=== PATIENT | male | born 1940 | race Caucasian/White ===

== ENCOUNTER → 2016-11-15 | Outpatient (CLI) | payer BC ==
[~2016-11-15] MED LIST: ATOR10TA88 PO; CLOP1TAB15 PO; MULT-506 PO; OMEG10007 PO; VTMEUNK PO
--- NOTE | 2016-11-15 11:38 | DIAGNOSTIC IMAGING REPORT ---
RIGHT ELBOW MIN 3 VIEWS CLINICAL HISTORY: Right elbow pain status post trauma COMPARISON: None. DISCUSSION: The fat pads are not displaced. No acute fractures are visualized. There is a tiny olecranon spur. There is soft tissue swelling at the level of the olecranon. IMPRESSION: 1. Soft tissue swelling at the level of the olecranon 2. No acute fractures identified Electronically signed by: Rubén Lancaster M.D. 11/15/2016 11:36 AM
== END | disposition home or self-care (01) ==
LOC: C.RDSM 17:07
PROVIDERS: ATTEND Internal Medicine
DX: M25.521 Pain in right elbow (principal)

== ENCOUNTER → 2017-07-03 | Outpatient (CLI) | payer BC ==
[~2017-07-03] MED LIST changes: +GADAVIST IV PRN
[2017-07-03 12:00] LABS: ISTAT IONIZED CALCIUM 1.21 mmol/l (1.12-1.32)
--- NOTE | 2017-07-03 13:03 | DIAGNOSTIC IMAGING REPORT ---
BRAIN COMBO FOR IAC CLINICAL HISTORY: 77 years-old Male presenting with left greater than right asymmetric sensorineural hearing loss. TECHNIQUE: Multisequence, multiplanar MR imaging of the brain was performed before and after the administration of intravenous contrast. IV contrast: 8.3 mL of Gadavist. COMPARISON: CT head from 2010. FINDINGS: Ventricles and sulci normal in size. Brain parenchyma normal in appearance with preserved flores-white differentiation. No mass effect or midline shift. No hemorrhage or acute territorial infarct. No extra-axial fluid collection. T2 skull base flow voids preserved. No masslike thickening of the transiting nerves in the internal auditory canal. Normal signal intensity of the inner ears structures. No abnormal parenchymal enhancement. Bone marrow signal intensity within the calvarium within normal limits. IMPRESSION: No acute intracranial abnormality. No abnormality of the internal auditory canals or inner ear structures. Electronically signed by: Bharath Rojas M.D. 07/03/2017 1:02 PM Dictated Date/Time: 07/03/2017 12:55 PM
--- NOTE | 2017-07-11 12:12 | CODING QUERY MEDICAL NECESSITY ---
CQSUPPORTING DIAGNOSIS NEEDED A supporting diagnosis is required for the test/procedure performed on this patient in order for us to be reimbursed by the patient's insurance. Please provide a supporting diagnosis for the following test/procedure listed below next to the test name along with your signature. *If there is no additional diagnosis for this patient that would support the following test/procedure please document that below next to the test/procedure. Test(s)/Procedure(s) that require a supporting diagnosis: DOS 07/03/17 COMPLETE BLOOD COUNT ORDERED BY MIMI CAO Provider Signature: Date: Thank you Serenity Dietrich Health Information Management Once completed, please kindly fax back to [phone] For questions please call [phone]
== END | disposition home or self-care (01) ==
LOC: C.MRI 11:04
PROVIDERS: ATTEND Physician Assistant
DX: H90.42 Sensorineural hearing loss, unilateral, left ear, with unrestricted hearing on the contralateral side (principal); H90.8 Mixed conductive and sensorineural hearing loss, unspecified; H90.A22 Sensorineural hearing loss, unilateral, left ear, with restricted hearing on the contralateral side

== ENCOUNTER 2025-08-26 20:18 | Inpatient (IN) ==
[2025-08-26 20:47] LABS: Hematocrit (blood only) 35.9 % (42.0-52.0); Hemoglobin 12.3 g/dl (14.0-18.0); Immature Granulocytes # (auto) 0.08 K/uL (0.01-0.20); Immature Granulocytes % (auto) 0.5 %; Mean Corpuscular Hemoglobin 28.7 pg (25.0-34.0); Mean Corpuscular Volume 83.9 fL (80.0-100.0); Platelet Count 227 K/uL (130-400); RDW Standard Deviation 42.3 fL (36.4-46.3); Red Blood Count 4.28 M/uL (4.70-6.10); White Blood Count 16.59 K/ul (4.8-10.8)
--- NOTE | 2025-08-26 20:47 | Emergency Department Note ---
Impression & Plan Acute UTI, Weakness ED Provider Note Provider: Jose Miguel Jimenez MD CHIEF COMPLAINT: Weakness, hypoxia HISTORY OF PRESENT ILLNESS: Patient is a 85-year-old gentleman history of dementia and hypertension presenting from [facility] via ambulance today. Staff there found him millimeter sponsor and cyanotic by EMS report. Was placed on oxygen for them and brought here for further evaluation. They evidently had the patient recovery position but no reported falls or trauma. Patient denies pain upon arrival here. Is not the best historian however. EMS report that the patient is not normally on oxygen. They state that they were told that this is his normal mental status. PAST MEDICAL HISTORY: As noted above MEDICATIONS: Reviewed medication list from facility SOCIAL HISTORY: PHYSICAL EXAM: GENERAL: alert and oriented to person but not birthday or recent events in no acute distress on stretcher, smells of urine Head: normocephalic and atraumatic EYES: No injection, discharge or icterus. PERRL, EOMI. NECK: Trachea midline. ENT: Mucous membranes pink and moist. LUNGS: Airway patent. No retractions. Breath sounds clear with good air entry bilaterally. HEART: Regular tachycardic rate and rhythm. No chest wall tenderness ABDOMEN: Soft and non-tender, without guarding or rebound. SKIN: Acyanotic, warm, dry, without rashes EXTREMITIES: Without swelling, tenderness or deformity NEUROLOGICAL: No focal deficits moving all extremities. No aphasia. No facial droop or slurred speech. EK bpm sinus tachycardia. No PVC or PAC. No acute ST segment lobation depression with a QTc of 479. CONTINUOUS CARDIAC MONITORING: was ordered and showed a heart rate of 80s-110s bpm in normal sinus rhythm to sinus tachycardia Patient's laboratory studies and imaging reviewed. Differential includes Infection, dehydration, metabolic abnormality, hypo/hyperglycemia, electrolyte disturbance, anemia, hypoxia, PE, URI, pneumonia,, cardiac sources, intracerebral event, toxicologic, neurologic, as well as other pathologies. IMPRESSION/MEDICAL DECISION MAKING: Patient with some dementia and reportedly at baseline by EMS. No trauma reported. Is mildly hypoxic but only on nasal cannula here. Borderline tachycardia. Smells of urine and question of this could be a infectious picture such as sepsis or urosepsis. Given the tachycardia and hypoxia we will complete CT scan of the chest to exclude PE or pneumonia as well. Given his unresponsiveness earlier we will complete a scan of the head. Will complete the abdomen pelvis as well given his poor history status to ensure no occult stone or other infectious nidus is noted in the abdomen. He is not particularly tender in the abdomen. Respiratory viral panel sent for completeness. Blood work here very slight anemia 12.3 but normal platelet count. Leukocytosis of 16.59 noted. Blood cultures are sent. Lactate not elevated at 1.6. Urinalysis appears positive for infection. Covered with cefepime given penicillin allergy. Negative respiratory viral panel. Procalcitonin 0.1. CT scan of the head per radiology report without evidence of bleed or infarct. CT angio of the chest per radiology without PE but question of maybe some slight fluid overload. Held off on IV fluids secondary to this and his lack of elevated lactate or hypotension. CT abdomen pelvis per radiology questions L3 acute compression fracture with some fecal impaction but no report of stone. Was able to wean the patient to room air. Question if he desatting just due to his illness and UTI infection causing drowsiness and lethargy. Will bring in for further care and monitoring here. IV cefepime administered and hospitalist was contacted for admission. DIAGNOSIS: Acute UTI, weakness DISPOSITION: Hospitalist will evaluate Past Med/Surg History Problem List (Updated 08/26/25 @ 22:18 by Jose Miguel Jimenez M.D.) Weakness (Acute) Acute UTI (Acute) Contusion (Acute) Abrasions of multiple sites (Acute) Fall (Acute) Seizure-like activity COVID-19 (Acute) Generalized headaches Stenosis of left vertebral artery Hypertensive urgency Medical History No pertinent family history Diabetes HTN (hypertension) HLD (hyperlipidemia) Migraine Surgical History No pertinent past surgical history Social History Smoking Status: Never smoker Tobacco Type: Cigarettes Preferred Language: Amharic Data [employer] Architect Required: No Beliefs That Will Affect Care: None Current Living Situation: Alone Feels Safe at Home: Yes Allergies Allergies Allergy/AdvReac Type Severity Reaction Status Date / Time Penicillins Allergy Intermediate rash Verified 08/26/25 20:57 HARVEY Inhibitors Allergy Unknown ON Verified 08/26/25 20:57 CELEBRATION [facility] MED LIST Home Meds Home Medications Medication Instructions Recorded Confirmed clopidogrel 75 mg tablet 75 mg PO QPM 09/13/20 08/26/25 polyethylene glycol 3350 17 gram 17 g PO QAM PRN Constipation 09/13/20 08/26/25 oral powder packet (Miralax) acetaminophen 500 mg tablet 500 mg PO Q6H PRN Pain/ Fever 01/07/25 08/26/25 loperamide 2 mg capsule 4 mg PO DAILY PRN Loose Stool 01/07/25 08/26/25 rosuvastatin 40 mg tablet 40 mg PO QPM 01/07/25 08/26/25 cholecalciferol (vitamin D3) 25 50 mcg PO TID 06/25/25 08/26/25 mcg (1,000 unit) tablet (Vitamin D3) medroxyprogesterone 10 mg tablet 10 mg PO BID 06/25/25 08/26/25 rivastigmine 4.6 mg/24 hour 1 patch topical QPM 06/25/25 08/26/25 transdermal patch quetiapine 25 mg tablet 25 mg PO BID 08/26/25 08/26/25 Results & Data (ED) Vital Signs Vital Signs - 24 hr 08/26/25 20:23 08/26/25 20:23 08/26/25 20:24 Temperature Temperature Source Pulse Rate 109 H 109 H Pulse Rate [Apical] Pulse Rate from SpO2 Sensor 110 H Pulse Rhythm Pulse Strength Respiratory Rate 24 Respiratory Effort / Characteristics Respiratory Depth Respiratory Pattern Blood Pressure 111/68 Blood Pressure [Right Arm] Blood Pressure Mean 89 Blood Pressure Mean [Right Arm] Blood Pressure Position Blood Pressure Position [Right Arm] Pulse Oximetry 94 Oxygen Delivery Method Nasal Cannula Oxygen Flow Rate 2 Sepsis Recent Fever Within 48 Hours Sepsis New/Unexplained Change in Mental Status Sepsis Action Taken by Nursing 08/26/25 20:26 08/26/25 20:26 08/26/25 20:26 Temperature 37.0 C Temperature Source Oral Pulse Rate 112 H Pulse Rate [Apical] Pulse Rate from SpO2 Sensor Pulse Rhythm Regular Pulse Strength Normal Respiratory Rate 24 Respiratory Effort / Characteristics Non-Labored Spontaneous Non-Labored Spontaneous Respiratory Depth Normal Normal Respiratory Pattern Regular Regular Blood Pressure 111/68 Blood Pressure [Right Arm] Blood Pressure Mean 82 Blood Pressure Mean [Right Arm] Blood Pressure Position Lying Blood Pressure Position [Right Arm] Pulse Oximetry 93 Oxygen Delivery Method Nasal Cannula Nasal Cannula Nasal Cannula Oxygen Flow Rate 2 2 2 Sepsis Recent Fever Within 48 Hours No Sepsis New/Unexplained Change in Mental Status No Sepsis Action Taken by Nursing Previously Notified 08/26/25 20:26 08/26/25 20:30 08/26/25 20:45 Temperature Temperature Source Pulse Rate 111 H 104 H Pulse Rate [Apical] Pulse Rate from SpO2 Sensor 109 H 103 H Pulse Rhythm Pulse Strength Respiratory Rate 27 H 25 H Respiratory Effort / Characteristics Respiratory Depth Respiratory Pattern Blood Pressure 117/92 Blood Pressure [Right Arm] Blood Pressure Mean 100 Blood Pressure Mean [Right Arm] Blood Pressure Position Blood Pressure Position [Right Arm] Pulse Oximetry 93 94 94 Oxygen Delivery Method Nasal Cannula Nasal Cannula Nasal Cannula Oxygen Flow Rate 2 2 2 Sepsis Recent Fever Within 48 Hours Sepsis New/Unexplained Change in Mental Status Sepsis Action Taken by Nursing 08/26/25 21:00 08/26/25 21:15 08/26/25 21:54 Temperature Temperature Source Pulse Rate 106 H 100 H Pulse Rate [Apical] 87 Pulse Rate from SpO2 Sensor 100 H Pulse Rhythm Pulse Strength Respiratory Rate 31 H 24 16 Respiratory Effort / Characteristics Respiratory Depth Respiratory Pattern Blood Pressure 90/74 L 122/56 L Blood Pressure [Right Arm] 122/78 Blood Pressure Mean 83 78 Blood Pressure Mean [Right Arm] 92 Blood Pressure Position Blood Pressure Position [Right Arm] Lying Pulse Oximetry 95 94 95 Oxygen Delivery Method Nasal Cannula Nasal Cannula Room Air Oxygen Flow Rate 2 2 Sepsis Recent Fever Within 48 Hours Sepsis New/Unexplained Change in Mental Status Sepsis Action Taken by Nursing Laboratory Data 08/26/25 20:22 08/26/25 20:22 Lab Results 08/26/25 08/26/25 Range/Units 20:22 Unknown WBC 16.59 H (4.8-10.8) K/ul RBC 4.28 L (4.70-6.10) M/uL Hgb 12.3 L (14.0-18.0) g/dl Hct 35.9 L (42.0-52.0) % MCV 83.9 (80.0-100.0) fL MCH 28.7 (25.0-34.0) pg MCHC 34.3 (32.0-36.0) g/dL RDW Std Deviation 42.3 (36.4-46.3) fL RDW Coeff of Nicole 13.9 (11.5-14.5) % Plt Count 227 (130-400) K/uL MPV 9.8 (9.4-12.4) fL Immature Gran % (Auto) 0.5 % Neut % (Auto) 80.9 % Lymph % (Auto) 8.8 % [place] % (Auto) 9.0 % Eos % (Auto) 0.4 % Baso % (Auto) 0.4 % Neut # (Auto) 13.41 H (1.40-6.50) K/uL Lymph # (Auto) 1.46 (1.20-3.40) K/uL [place] # (Auto) 1.50 H (0.11-0.59) K/uL Eos # (Auto) 0.07 (0.00-0.50) K/uL Baso # (Auto) 0.07 (0.00-0.20) K/uL Immature Gran # (Auto) 0.08 (0.01-0.20) K/uL PT 11.9 (9.0-12.0) Seconds INR 1.1 (0.9-1.1) VBG pH 7.37 (7.36-7.41) VBG pCO2 33 L (38-50) mmHg VBG pO2 62 mmHg VBG HCO3 19 mmol/L VBG O2 Saturation 93.9 % VBG Base Excess -5.3 mEq/L Sodium 135 L (136-145) mmol/L Potassium 3.5 (3.5-5.1) mmol/L Chloride 106 (98-107) mmol/L Carbon Dioxide 22 (21-32) mmol/L Anion Gap 7 (3-11) BUN 22 (6-23) mg/dl Creatinine 1.07 (0.6-1.4) mg/dl Est Cr Clr Drug Dosing 54.0 ml/min eGFR 68.85 BUN/Creatinine Ratio 20.6 H (10-20) Glucose 201 H (70-99(Fasting)) mg/dl Lactate 1.6 (0.4-2.0) mmol/L Calcium 8.8 (8.6-10.3) mg/dl Magnesium 1.9 (1.7-2.4) mg/dl Total Bilirubin 0.9 (0.2-1.0) mg/dl AST 14 (13-39) U/L ALT 27 (7-52) U/L Alkaline Phosphatase 90 (34-104) U/L Total Creatine Kinase 197 (30-223) U/L Troponin I High Sens 8.8 (0-20) pg/ml Total Protein 6.1 (6.0-8.3) gm/dl Albumin 3.6 (3.4-5.0) gm/dl Globulin 2.5 (2.5-4.0) gm/dl Albumin/Globulin Ratio 1.4 (0.9-2) Procalcitonin 0.10 (0-0.5) ng/ml TSH 2.821 (0.300-4.500) uIu/ml Urine Color Yellow Urine Appearance Cloudy A (Clear) Urine pH 5.5 (4.5-7.5) Ur Specific [place] 1.025 (1.000-1.030) Urine Protein 1+ H (Negative) Urine Glucose (UA) Negative (Negative) Urine Ketones Trace H (Negative) Urine Blood Negative (Negative) Urine Nitrite Positive A (Negative) Urine Bilirubin Negative (Negative) Urine Urobilinogen Negative (Negative) Ur Leukocyte Esterase 1+ H (Negative) Urine WBC (Auto) >50 H (0-5) /hpf Urine RBC (Auto) 0-2 (0-2) /hpf U Hyaline Cast (Auto) 3-5 H (0-2) /lpf U Epithel Cells (Auto) 0-2 (0-2) /hpf Urine Bacteria (Auto) 4+ H (None Seen) Urine Comment Adenovirus (PCR) Not Detected (NotDetected) B. pertussis DNA (PCR) Not Detected (NotDetected) B.parapertussis DNA PCR Not Detected (NotDetected) C. pneumoniae DNA (PCR) Not Detected (NotDetected) Coronavirus OC43 (PCR) Not Detected (NotDetected) Coronavirus HKU1 (PCR) Not Detected (NotDetected) Coronavirus 229E (PCR) Not Detected (NotDetected) SARS-CoV-2 (PCR) Not Detected (NotDetected) Coronavirus NL63 (PCR) Not Detected (NotDetected) Human Metapneumovir PCR Not Detected (NotDetected) Influenza Type A (PCR) Not Detected (NotDetected) Influenza Type B (PCR) Not Detected (NotDetected) M. pneumoniae (PCR) Not Detected (NotDetected) Parainfluenza 1 (PCR) Not Detected (NotDetected) Parainfluenza 2 (PCR) Not Detected (NotDetected) Parainfluenza 3 (PCR) Not Detected (NotDetected) Parainfluenza 4 (PCR) Not Detected (NotDetected) RSV (PCR) Not Detected (NotDetected) Entero/Rhino (PCR) Not Detected (NotDetected) Administered Medications Discontinued Medications Cefepime HCl (Maxipime 2000mg) 2,000 mg in 20 mls @ 5 mls/min IV NOW STA; Protocol Stop: 08/26/25 21:33 Last Admin: 08/26/25 21:42 Dose: 5 mls/min Documented By: JENNA Ioversol (Optiray 320 125ml) 115 ml IV ONCE ONE Stop: 08/26/25 21:08 Last Admin: 08/26/25 21:07 Dose: 115 ml Documented By: EDWINA Imaging Data Radiologist's Impression: Chest X-Ray 08/26/25 20:26 Exam(s): XR CXR 1 VIEW EXAM: XR Chest, 1 View CLINICAL HISTORY: Reason for exam: weakness, hypoxia. TECHNIQUE: Frontal view of the chest. COMPARISON: CTA chest done as a follow-up. FINDINGS: Lungs/Pleural space: Mild vascular/interstitial prominence, nonspecific, may be chronic; can not rule out mild CHF. No focal infiltrate, pleural effusion or pneumothorax. Heart: No cardiomegaly. Mediastinum: Unremarkable. Bones/Soft Tissues: No acute abnormality. IMPRESSION: 1. Mild vascular/interstitial prominence, nonspecific, may be chronic; cannot rule out mild CHF. Electronically signed by: Lily Pinto M.D. 08/26/25 21:57 PM Abdomen/Pelvis CT 08/26/25 20:27 Exam(s): CT ABDOMEN + PELVIS With Contrast IV Amt: 115 ml optiray 320 EXAM: CT Abdomen and Pelvis With Intravenous Contrast CLINICAL HISTORY: Reason for exam: weak, hypoxic. TECHNIQUE: Axial computed tomography images of the abdomen and pelvis with intravenous contrast. CTDI is 26.72 mGy and DLP is 1530.86 mGy-cm. Automated exposure control was utilized for the study. A dose lowering technique was utilized adhering to the principles of ALARA. Mild to moderate motion artifact. Mild to moderate artifact from arms in the field of view, patient and breathing motion. CONTRAST: Patient received 115 ml optiray 320 of IV contrast COMPARISON: CT abdomen pelvis 08/12/2025. FINDINGS: Lung bases: Mild bibasilar dependent pleural-parenchymal thickening, scarring, atelectasis and/or pneumonia. Breathing motion artifact limits evaluation. Liver: Stable, small cysts. Gallbladder and bile ducts: Normal gallbladder. No ductal dilation. Pancreas: No ductal dilation, or acute pancreatitis. Spleen: Unremarkable. Adrenals: Unremarkable. Kidneys and ureters: Stable cysts. No pyelonephritis or hydronephrosis. Stomach and bowel: Moderate fecal loading of the colon, and mild fecal impaction in the rectum. Diverticulosis without acute diverticulitis. No obstruction. Appendix: Normal. Intraperitoneal space: No free air or fluid. Bones/joints: Mild superior endplate compression fracture L3, has occurred in the interval , likely reflecting acute fracture. No retropulsion. Multilevel chronic endplate flattening, most notable at T12, stable. Soft tissues: Unremarkable. Vasculature: Moderate atherosclerosis. No aortic aneurysm. Lymph nodes: No enlarged lymph nodes. Bladder: Only mildly distended with wall thickening that may be artifact, can not rule out cystitis. Reproductive: Unremarkable as visualized. IMPRESSION: 1. New, acute L3 compression fracture. 2. Possible cystitis versus artifact from underdistention. 3. Mild fecal impaction in the rectum. Electronically signed by: Lily Pinto M.D. 08/26/25 22:11 PM Chest CTA 08/26/25 20:27 Exam(s): CTA CHEST IV Amt: 115ml EXAM: CT Chest With Intravenous Contrast CLINICAL HISTORY: Reason for exam: PE, weak, hypoxic. TECHNIQUE: Axial computed tomographic images of the chest with intravenous contrast. CTDI is 26.41 mGy and DLP is 819.84 mGy-cm. Automated exposure control was utilized for the study. A dose lowering technique was utilized adhering to the principles of ALARA. No MIP images. 115 mL IV contrast is given, with excellent aortic and pulmonary arterial enhancement. Moderate breathing/motion artifact. COMPARISON: CT chest 08/12/2025. FINDINGS: Pulmonary arteries: No pulmonary embolism, as imaged, with limited evaluation due to motion artifact. Mild vascular prominence. Aorta: No aneurysm. Lungs: Mild dependent atelectasis or infiltrate. No consolidation. Pleural space: Right pleural thickening and calcification No significant effusion. No pneumothorax. Heart: Stable, mild cardiomegaly. No significant pericardial effusion. No evidence of elevated right heart pressures. Bones/joints: No acute fracture. Soft tissues: Partially imaged bilateral renal cysts, stable, no further workup. Lymph nodes: No enlarged lymph nodes. IMPRESSION: 1. No pulmonary embolism, as imaged, with limited evaluation due to motion artifact. 2. Mild vascular and bibasilar interstitial prominence, nonspecific, can not rule out mild CHF and/or pneumonia. Electronically signed by: Lily Pinto M.D. 08/26/25 22:[address] 08/26/25 20:27 Exam(s): CT HEAD Without Contrast EXAM: CT Head Without Intravenous Contrast CLINICAL HISTORY: Reason for exam: weak, hypoxic. TECHNIQUE: Axial computed tomography images of the head/brain without intravenous contrast. CTDI is 37.01 mGy and DLP is 702.46 mGy-cm. Automated exposure control was utilized for the study. A dose lowering technique was utilized adhering to the principles of ALARA. Mild to moderate motion artifact. COMPARISON: Head CT 08/12/2025. FINDINGS: Brain: Ventriculomegaly with relatively small sulci, nonspecific, stable, may reflect atrophy of the central component, cannot rule out communicating hydrocephalus. No mass, edema, mass effect or acute infarct. No acute hemorrhage. Mild atrophy and chronic, nonspecific white matter disease. Ventricles: No midline shift. Bones/joints: No skull fracture. Soft tissues: No scalp hematoma. Visualized Sinuses: Clear. Mastoid air cells: No mastoid effusion. IMPRESSION: 1. Stable ventriculomegaly, cannot rule out communicating hydrocephalus. 2. No acute infarct, bleed, acute intracranial abnormality, or interval change. Electronically signed by: Lily Pinto M.D. 08/26/25 22:25 PM Discharge Plan Visit Data Chief Complaint: Shortness of Breath/Dyspnea Stated Complaint: SHORTNESS OF BREATH ED Provider: Jose Miguel Jimenez Discharge Problem: Acute UTI, Weakness Patient Disposition: Being Evaluated by Hospitalist Condition: Fair Forms Stand Alone Forms: [facility] [place] Prescriptions Prescriptions: No Action polyethylene glycol 3350 [Miralax] 17 gram Powder In Packet 17 g PO QAM PRN (Reason: Constipation) clopidogrel 75 mg tablet 75 mg PO QPM loperamide 2 mg capsule 4 mg PO DAILY MDD 4 caps PRN (Reason: Loose Stool ) Rx Instructions: Take 2 capsules by mouth after 1st loose bowel movement, then one capsule thereafter as needed. *Max 4caps/ 24hours. acetaminophen 500 mg Tablet 500 mg PO Q6H MDD 3GM PRN (Reason: Pain/ Fever ) rosuvastatin 40 mg tablet 40 mg PO QPM medroxyprogesterone 10 mg tablet 10 mg PO BID cholecalciferol (vitamin D3) [Vitamin D3] 25 mcg (1,000 unit) Tablet 50 mcg PO TID rivastigmine 4.6 mg/24 hour patch 24 hour 1 patch topical QPM quetiapine 25 mg tablet 25 mg PO BID Referrals Referrals: ZELALEM Martinez [Primary Care Provider] -
[2025-08-26 20:56] LABS: Base Excess VBG -5.3 mEq/L; HCO3 VBG 19 mmol/L; Oxygen Saturation VBG 93.9 %; PCO2 VBG 33 mmHg (38-50); PO2 VBG 62 mmHg; pH VBG 7.37 (7.36-7.41)
[2025-08-26 21:04] LABS: Alanine Aminotransferase 27.0 U/L (7-52); Albumin Globulin Ratio 1.4 (0.9-2); Albumin Level 3.6 gm/dl (3.4-5.0); Alkaline Phosphatase 90.0 U/L (34-104); Anion Gap 7.0 (3-11); Bilirubin,Total 0.9 mg/dl (0.2-1.0); Blood Urea Nitrogen 22.0 mg/dl (6-23); Calcium 8.8 mg/dl (8.6-10.3); Carbon Dioxide 22.0 mmol/L (21-32); Chloride 106.0 mmol/L (98-107); Creatine Kinase 197.0 U/L (30-223); Creatinine Clr Calc Pharmacy 54.0 ml/min; Globulin 2.5 gm/dl (2.5-4.0); Glucose 201.0 mg/dl (70-99(Fasting)); Magnesium 1.9 mg/dl (1.7-2.4); Potassium 3.5 mmol/L (3.5-5.1); Sodium 135.0 mmol/L (136-145); Total Protein 6.1 gm/dl (6.0-8.3)
[2025-08-26] MEDS: OPTIRAY 320 125ml IV ONE (21:07)
[2025-08-26 21:11] LABS: Appearance Urine Cloudy (Clear); Bacteria Urine Automated 4+ (None Seen); Epithelial Cell Urine Auto 0-2 /hpf (0-2); Glucose Urine UA Negative (Negative); RBC Urine Automated 0-2 /hpf (0-2); WBC Urine Automated >50 /hpf (0-5)
[2025-08-26 21:12] LABS: INR 1.1 (0.9-1.1); Prothrombin Time 11.9 Seconds (9.0-12.0)
[2025-08-26 21:20] LABS: Thyroid Stimulating Hormone 2.821 uIu/ml (0.300-4.500)
[2025-08-26 21:37] LABS: Chlamydia pneumoniae PCR Not Detected (NotDetected); Coronavirus 229E PCR Not Detected (NotDetected); Coronavirus CoV-2 (COVID19)PCR Not Detected (NotDetected); Coronavirus HKU1 PCR Not Detected (NotDetected); Coronavirus NL63 PCR Not Detected (NotDetected); Coronavirus OC43PCR Not Detected (NotDetected); Human Metapneumovirus PCR Not Detected (NotDetected); Parainfluenza Virus 1 PCR Not Detected (NotDetected); Parainfluenza Virus 2 PCR Not Detected (NotDetected); Parainfluenza Virus 3 PCR Not Detected (NotDetected); Parainfluenza Virus 4 PCR Not Detected (NotDetected); Respiratory Syncytial VirusPCR Not Detected (NotDetected); Rhinovirus/Enterovirus PCR Not Detected (NotDetected)
[2025-08-26] MEDS: CEFEPIME 2000MG 2,000 MG/20 ML SYR IV STA (21:42)
--- NOTE | 2025-08-26 21:58 | XRay Report ---
Exam(s): XR CXR 1 VIEW EXAM: XR Chest, 1 View CLINICAL HISTORY: Reason for exam: weakness, hypoxia. TECHNIQUE: Frontal view of the chest. COMPARISON: CTA chest done as a follow-up. FINDINGS: Lungs/Pleural space: Mild vascular/interstitial prominence, nonspecific, may be chronic; can not rule out mild CHF. No focal infiltrate, pleural effusion or pneumothorax. Heart: No cardiomegaly. Mediastinum: Unremarkable. Bones/Soft Tissues: No acute abnormality. IMPRESSION: 1. Mild vascular/interstitial prominence, nonspecific, may be chronic; cannot rule out mild CHF. Electronically signed by: Lily Pinto M.D. 08/26/25 21:57 PM
--- NOTE | 2025-08-26 22:12 | CT Scan Report ---
Exam(s): CT ABDOMEN + PELVIS With Contrast IV Amt: 115 ml optiray 320 EXAM: CT Abdomen and Pelvis With Intravenous Contrast CLINICAL HISTORY: Reason for exam: weak, hypoxic. TECHNIQUE: Axial computed tomography images of the abdomen and pelvis with intravenous contrast. CTDI is 26.72 mGy and DLP is 1530.86 mGy-cm. Automated exposure control was utilized for the study. A dose lowering technique was utilized adhering to the principles of ALARA. Mild to moderate motion artifact. Mild to moderate artifact from arms in the field of view, patient and breathing motion. CONTRAST: Patient received 115 ml optiray 320 of IV contrast COMPARISON: CT abdomen pelvis 08/12/2025. FINDINGS: Lung bases: Mild bibasilar dependent pleural-parenchymal thickening, scarring, atelectasis and/or pneumonia. Breathing motion artifact limits evaluation. Liver: Stable, small cysts. Gallbladder and bile ducts: Normal gallbladder. No ductal dilation. Pancreas: No ductal dilation, or acute pancreatitis. Spleen: Unremarkable. Adrenals: Unremarkable. Kidneys and ureters: Stable cysts. No pyelonephritis or hydronephrosis. Stomach and bowel: Moderate fecal loading of the colon, and mild fecal impaction in the rectum. Diverticulosis without acute diverticulitis. No obstruction. Appendix: Normal. Intraperitoneal space: No free air or fluid. Bones/joints: Mild superior endplate compression fracture L3, has occurred in the interval , likely reflecting acute fracture. No retropulsion. Multilevel chronic endplate flattening, most notable at T12, stable. Soft tissues: Unremarkable. Vasculature: Moderate atherosclerosis. No aortic aneurysm. Lymph nodes: No enlarged lymph nodes. Bladder: Only mildly distended with wall thickening that may be artifact, can not rule out cystitis. Reproductive: Unremarkable as visualized. IMPRESSION: 1. New, acute L3 compression fracture. 2. Possible cystitis versus artifact from underdistention. 3. Mild fecal impaction in the rectum. Electronically signed by: Lily Pinto M.D. 08/26/25 22:11 PM
--- NOTE | 2025-08-26 22:26 | CT Scan Report ---
Exam(s): CT HEAD Without Contrast EXAM: CT Head Without Intravenous Contrast CLINICAL HISTORY: Reason for exam: weak, hypoxic. TECHNIQUE: Axial computed tomography images of the head/brain without intravenous contrast. CTDI is 37.01 mGy and DLP is 702.46 mGy-cm. Automated exposure control was utilized for the study. A dose lowering technique was utilized adhering to the principles of ALARA. Mild to moderate motion artifact. COMPARISON: Head CT 08/12/2025. FINDINGS: Brain: Ventriculomegaly with relatively small sulci, nonspecific, stable, may reflect atrophy of the central component, cannot rule out communicating hydrocephalus. No mass, edema, mass effect or acute infarct. No acute hemorrhage. Mild atrophy and chronic, nonspecific white matter disease. Ventricles: No midline shift. Bones/joints: No skull fracture. Soft tissues: No scalp hematoma. Visualized Sinuses: Clear. Mastoid air cells: No mastoid effusion. IMPRESSION: 1. Stable ventriculomegaly, cannot rule out communicating hydrocephalus. 2. No acute infarct, bleed, acute intracranial abnormality, or interval change. Electronically signed by: Lily Pinto M.D. 08/26/25 22:25 PM
--- NOTE | 2025-08-26 22:41 | CT Scan Report ---
Exam(s): CTA CHEST IV Amt: 115ml EXAM: CT Chest With Intravenous Contrast CLINICAL HISTORY: Reason for exam: PE, weak, hypoxic. TECHNIQUE: Axial computed tomographic images of the chest with intravenous contrast. CTDI is 26.41 mGy and DLP is 819.84 mGy-cm. Automated exposure control was utilized for the study. A dose lowering technique was utilized adhering to the principles of ALARA. No MIP images. 115 mL IV contrast is given, with excellent aortic and pulmonary arterial enhancement. Moderate breathing/motion artifact. COMPARISON: CT chest 08/12/2025. FINDINGS: Pulmonary arteries: No pulmonary embolism, as imaged, with limited evaluation due to motion artifact. Mild vascular prominence. Aorta: No aneurysm. Lungs: Mild dependent atelectasis or infiltrate. No consolidation. Pleural space: Right pleural thickening and calcification No significant effusion. No pneumothorax. Heart: Stable, mild cardiomegaly. No significant pericardial effusion. No evidence of elevated right heart pressures. Bones/joints: No acute fracture. Soft tissues: Partially imaged bilateral renal cysts, stable, no further workup. Lymph nodes: No enlarged lymph nodes. IMPRESSION: 1. No pulmonary embolism, as imaged, with limited evaluation due to motion artifact. 2. Mild vascular and bibasilar interstitial prominence, nonspecific, can not rule out mild CHF and/or pneumonia. Electronically signed by: Lily Pinto M.D. 08/26/25 22:40 PM
--- NOTE | 2025-08-26 22:49 | History & Physical Report ---
Date of Service August 26, 2025 Assessment & Plan (1) Acute UTI: (2) Compression fracture of L3 vertebra: (3) Constipation: Plan 85-year-old male PMHx HLD, DM, complicated migraines, depression, dementia, history of tobacco abuse, hearing loss, GERD, and prior left vertebral artery stenosis presenting for complaints of SOB per nursing staff at [facility] with O2 sats 80s on the day of arrival. Evaluation does reveal evidence of leukocytosis 16.59 with minimally decreased H&H 12.3/35.9. VBG is grossly WNL with exception of slightly decreased CO2 at 33. CMP with glucose 201 and sodium of 135. Lactate, troponin, total CK, procalcitonin WNL. UA does reveal evidence of infection, supported by CTAP read. Also found to have acute L3 compression fracture. While pt was brought in for "SOB and hypoxia" there has not been evidence of such since arrival to ED. Will continue to monitor this as appropriate. Admission for UTI and pain management as needed for compression fracture. #UTI Unable to express symptoms or concerns. Reportedly at baseline mentation. Documented history of diabetes, no current medical regimen for such. No prior h/o Pseudomonas. - CBC leukocytosis 16.53; renal function WNL; lactate 1.6; procalcitonin 0.1 - CBC am - UA suggestive of infection; pending cx - CTAP possible cystitis - Zofran prn N/V - Acetaminophen prn fever/pain - Cefepime 2g IV - continue #L3 compression fracture Unclear if fall or trauma. - Total CK WNL - Vit D level am - Heat prn - Fall precautions - Acetaminophen prn pain, can escalate as appropriate - PT/OT ordered - appreciate assistance #Constipation Unable to express concerns/pain, unable to obtain date of last BM; is prescribed loperamide as needed for loose stool. Also prescribed MiraLAX as needed. - CTAP today of arrival reveals fecal impaction in the rectum - Hold loperamide - Continue MiraLAX, add bisacodyl, and add enema as necessary #LVA stenosis- Rosuvastatin, Plavix - continue #Dementia/Psych- Quetiapine, rivastigmine, medroxyprogesterone - continue Dispo: Admit, med/tele VTE Prophylaxis: SCDs This document was dictated utilizing Dragon Medical One. Please excuse any grammatical errors that may be secondary to use of this software. Admission and Anticipated Discharge Date Admission Date: 08/26/2025 History of Present Illness Chief Complaint: SOB Primary Care Provider: [facility] 85-year-old male PMHx HLD, DM, complicated migraines, depression, dementia, history of tobacco abuse, hearing loss, GERD, and prior left vertebral artery stenosis presenting for complaints of SOB per nursing staff at [facility] with O2 sats 80s on the day of arrival. Pt is unable to provide a historian, anjana olson historian. Sleeping upon entering the room. He is oriented to his name and opens his eyes when his name is called/when touched on the arm. Shakes his head no when asked if he has pain or if he fell recently. Goes back to sleep then. Report states that the patient was cyanotic at [facility] and had O2 sats of 80% when checked. Since being in ED, he has not been hypoxic at all. ED evaluation CBC with leukocytosis 16.59, H&H 12.3/35.9; PT/INR WNL; VBG's pCO2 33; CMP sodium 135, glucose 201, BUN/creatinine ratio 20.6; lactate 1.6; troponin 8.8; total CK1 97; procalcitonin 0.1; TSH 2.821; UA positive for infection; BioFire negative; CXR mild vascular/interstitial prominence that is nonspecific and may be chronic; CTAP no acute L3 compression fracture, possible cystitis, fecal impaction in the rectum; head CT stable ventriculomegaly cannot rule out communicating hydrocephalus, no acute infarct/bleed/intracranial abnormality; chest CTA no PE, mild vascular and bibasilar interstitial prominence; EKG sinus tachycardia at 110 bpm.; Provided with cefepime 2 g IV in ED. Please see Dr. Frye's attestation for adjustments/additions to treatment plan. Allergies Allergy/AdvReac Type Severity Reaction Status Date / Time Penicillins Allergy Intermediate rash Verified 08/26/25 20:57 HARVEY Inhibitors Allergy Unknown ON Verified 08/26/25 20:57 [facility] MED LIST Home Medications Medication Instructions Recorded Confirmed Type clopidogrel 75 mg tablet 75 mg PO QPM 09/13/20 08/26/25 History polyethylene glycol 3350 17 gram 17 g PO QAM PRN Constipation 09/13/20 08/26/25 History oral powder packet (Miralax) acetaminophen 500 mg tablet 500 mg PO Q6H PRN Pain/ Fever 01/07/25 08/26/25 History loperamide 2 mg capsule 4 mg PO DAILY PRN Loose Stool 01/07/25 08/26/25 History rosuvastatin 40 mg tablet 40 mg PO QPM 01/07/25 08/26/25 History cholecalciferol (vitamin D3) 25 50 mcg PO TID 06/25/25 08/26/25 History mcg (1,000 unit) tablet (Vitamin D3) medroxyprogesterone 10 mg tablet 10 mg PO BID 06/25/25 08/26/25 History rivastigmine 4.6 mg/24 hour 1 patch topical QPM 06/25/25 08/26/25 History transdermal patch quetiapine 25 mg tablet 25 mg PO BID 08/26/25 08/26/25 History Past Med/Surg History Problem List (Updated 08/27/25 @ 02:26 by Astrid Roberts) Constipation Compression fracture of L3 vertebra Weakness (Acute) Acute UTI (Acute) Seizure-like activity COVID-19 (Acute) Generalized headaches Stenosis of left vertebral artery Hypertensive urgency Medical History No pertinent family history Diabetes HTN (hypertension) HLD (hyperlipidemia) Migraine Surgical History No pertinent past surgical history Social History Smoking Status: Unknown if ever smoked Tobacco Type: Cigarettes Hx Alcohol Use: No Hx Substance Use: No Preferred Language: Malay Communication Ability: Effective 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 Beliefs That Will Affect Care: None Current Living Situation: Residential Current Living Situation Comment: [facility] Feels Safe at Home: Yes Safety Concerns: Feels Safe At This Time Assistive Devices: Oxygen - Continuous Review of Systems Review of Systems: Unobtainable due to cognitive status Physical Exam Physical Exam: General: No acute distress Skin: Warm and dry Head: Normocephalic, atraumatic Eyes: PERRL, conjunctivae clear, sclera non-icteric ENT: External ear and ear canal without swelling; nose atraumatic; tongue normal appearance, pharynx normal Neck: Supple, no LAD Cardio: RRR, no M/G/R, S1 and S2 normal Resp: No respiratory distress, Lungs CTA in all lobes bilaterally, no wheezes, rales, or rhonchi Abdomen: Soft, symmetric, nontender; No masses or hepatosplenomegaly; Bowel sounds normoactive MSK: No deformities; pulses palpable and equal; no edema. Neuro: Sensation intact bilaterally Psych: Sleeping, oriented to name and light touch. Results & Data Results & Data Vital Signs (Past 12 Hours) Vital Signs Temp Pulse Pulse Resp BP BP Pulse Ox 08/26/25 21:54 87 16 122/78 95 08/26/25 21:15 100 H 24 122/56 L 94 08/26/25 21:00 106 H 31 H 90/74 L 95 08/26/25 20:45 104 H 25 H 94 08/26/25 20:30 111 H 27 H 117/92 94 08/26/25 20:26 93 08/26/25 20:26 08/26/25 20:26 37.0 C 112 H 24 111/68 93 08/26/25 20:26 08/26/25 20:24 109 H 24 94 08/26/25 20:23 111/68 08/26/25 20:23 109 H O2 Del Method O2 Flow Rate 08/26/25 21:54 Room Air 08/26/25 21:15 Nasal Cannula 2 08/26/25 21:00 Nasal Cannula 2 08/26/25 20:45 Nasal Cannula 2 08/26/25 20:30 Nasal Cannula 2 08/26/25 20:26 Nasal Cannula 2 08/26/25 20:26 Nasal Cannula 2 08/26/25 20:26 Nasal Cannula 2 08/26/25 20:26 Nasal Cannula 2 08/26/25 20:24 Nasal Cannula 2 08/26/25 20:23 08/26/25 20:23 Laboratory Results 08/26/25 21:26 Aerobic Blood Culture - Pending Blood Anaerobic Blood Culture - Pending 08/26/25 Unknown Urine Culture - Pending Urine,Clean Catch 08/26/25 20:22 Aerobic Blood Culture - Pending Blood Anaerobic Blood Culture - Pending 08/26/25 08/26/25 Unknown 20:22 WBC 16.59 H RBC 4.28 L Hgb 12.3 L Hct 35.9 L MCV 83.9 MCH 28.7 MCHC 34.3 RDW Std Deviation 42.3 RDW Coeff of Nicole 13.9 Plt Count 227 MPV 9.8 Immature Gran % (Auto) 0.5 Neut % (Auto) 80.9 Lymph % (Auto) 8.8 [place] % (Auto) 9.0 Eos % (Auto) 0.4 Baso % (Auto) 0.4 Neut # (Auto) 13.41 H Lymph # (Auto) 1.46 [place] # (Auto) 1.50 H Eos # (Auto) 0.07 Baso # (Auto) 0.07 Immature Gran # (Auto) 0.08 PT 11.9 INR 1.1 VBG pH 7.37 VBG pCO2 33 L VBG pO2 62 VBG HCO3 19 VBG O2 Saturation 93.9 VBG Base Excess -5.3 Sodium 135 L Potassium 3.5 Chloride 106 Carbon Dioxide 22 Anion Gap 7 BUN 22 Creatinine 1.07 Est Cr Clr Drug Dosing 54.0 eGFR 68.85 BUN/Creatinine Ratio 20.6 H Glucose 201 H Lactate 1.6 Calcium 8.8 Magnesium 1.9 Total Bilirubin 0.9 AST 14 ALT 27 Alkaline Phosphatase 90 Total Creatine Kinase 197 Troponin I High Sens 8.8 Total Protein 6.1 Albumin 3.6 Globulin 2.5 Albumin/Globulin Ratio 1.4 Procalcitonin 0.10 TSH 2.821 Urine Color Yellow Urine Appearance Cloudy A Urine pH 5.5 Ur Specific [place] 1.025 Urine Protein 1+ H Urine Glucose (UA) Negative Urine Ketones Trace H Urine Blood Negative Urine Nitrite Positive A Urine Bilirubin Negative Urine Urobilinogen Negative Ur Leukocyte Esterase 1+ H Urine WBC (Auto) >50 H Urine RBC (Auto) 0-2 U Hyaline Cast (Auto) 3-5 H U Epithel Cells (Auto) 0-2 Urine Bacteria (Auto) 4+ H Urine Comment Adenovirus (PCR) Not Detected B. pertussis DNA (PCR) Not Detected B.parapertussis DNA PCR Not Detected C. pneumoniae DNA (PCR) Not Detected Coronavirus OC43 (PCR) Not Detected Coronavirus HKU1 (PCR) Not Detected Coronavirus 229E (PCR) Not Detected SARS-CoV-2 (PCR) Not Detected Coronavirus NL63 (PCR) Not Detected Human Metapneumovir PCR Not Detected Influenza Type A (PCR) Not Detected Influenza Type B (PCR) Not Detected M. pneumoniae (PCR) Not Detected Parainfluenza 1 (PCR) Not Detected Parainfluenza 2 (PCR) Not Detected Parainfluenza 3 (PCR) Not Detected Parainfluenza 4 (PCR) Not Detected RSV (PCR) Not Detected Entero/Rhino (PCR) Not Detected Diagnostic Findings Chest X-Ray 08/26/25 20:26 Exam(s): XR CXR 1 VIEW EXAM: XR Chest, 1 View CLINICAL HISTORY: Reason for exam: weakness, hypoxia. TECHNIQUE: Frontal view of the chest. COMPARISON: CTA chest done as a follow-up. FINDINGS: Lungs/Pleural space: Mild vascular/interstitial prominence, nonspecific, may be chronic; can not rule out mild CHF. No focal infiltrate, pleural effusion or pneumothorax. Heart: No cardiomegaly. Mediastinum: Unremarkable. Bones/Soft Tissues: No acute abnormality. IMPRESSION: 1. Mild vascular/interstitial prominence, nonspecific, may be chronic; cannot rule out mild CHF. Electronically signed by: Lily Pinto M.D. 08/26/25 21:57 PM Abdomen/Pelvis CT 08/26/25 20:27 Exam(s): CT ABDOMEN + PELVIS With Contrast IV Amt: 115 ml optiray 320 EXAM: CT Abdomen and Pelvis With Intravenous Contrast CLINICAL HISTORY: Reason for exam: weak, hypoxic. TECHNIQUE: Axial computed tomography images of the abdomen and pelvis with intravenous contrast. CTDI is 26.72 mGy and DLP is 1530.86 mGy-cm. Automated exposure control was utilized for the study. A dose lowering technique was utilized adhering to the principles of ALARA. Mild to moderate motion artifact. Mild to moderate artifact from arms in the field of view, patient and breathing motion. CONTRAST: Patient received 115 ml optiray 320 of IV contrast COMPARISON: CT abdomen pelvis 08/12/2025. FINDINGS: Lung bases: Mild bibasilar dependent pleural-parenchymal thickening, scarring, atelectasis and/or pneumonia. Breathing motion artifact limits evaluation. Liver: Stable, small cysts. Gallbladder and bile ducts: Normal gallbladder. No ductal dilation. Pancreas: No ductal dilation, or acute pancreatitis. Spleen: Unremarkable. Adrenals: Unremarkable. Kidneys and ureters: Stable cysts. No pyelonephritis or hydronephrosis. Stomach and bowel: Moderate fecal loading of the colon, and mild fecal impaction in the rectum. Diverticulosis without acute diverticulitis. No obstruction. Appendix: Normal. Intraperitoneal space: No free air or fluid. Bones/joints: Mild superior endplate compression fracture L3, has occurred in the interval , likely reflecting acute fracture. No retropulsion. Multilevel chronic endplate flattening, most notable at T12, stable. Soft tissues: Unremarkable. Vasculature: Moderate atherosclerosis. No aortic aneurysm. Lymph nodes: No enlarged lymph nodes. Bladder: Only mildly distended with wall thickening that may be artifact, can not rule out cystitis. Reproductive: Unremarkable as visualized. IMPRESSION: 1. New, acute L3 compression fracture. 2. Possible cystitis versus artifact from underdistention. 3. Mild fecal impaction in the rectum. Electronically signed by: Lily Pinto M.D. 08/26/25 22:11 PM Chest CTA 08/26/25 20:27 Exam(s): CTA CHEST IV Amt: 115ml EXAM: CT Chest With Intravenous Contrast CLINICAL HISTORY: Reason for exam: PE, weak, hypoxic. TECHNIQUE: Axial computed tomographic images of the chest with intravenous contrast. CTDI is 26.41 mGy and DLP is 819.84 mGy-cm. Automated exposure control was utilized for the study. A dose lowering technique was utilized adhering to the principles of ALARA. No MIP images. 115 mL IV contrast is given, with excellent aortic and pulmonary arterial enhancement. Moderate breathing/motion artifact. COMPARISON: CT chest 08/12/2025. FINDINGS: Pulmonary arteries: No pulmonary embolism, as imaged, with limited evaluation due to motion artifact. Mild vascular prominence. Aorta: No aneurysm. Lungs: Mild dependent atelectasis or infiltrate. No consolidation. Pleural space: Right pleural thickening and calcification No significant effusion. No pneumothorax. Heart: Stable, mild cardiomegaly. No significant pericardial effusion. No evidence of elevated right heart pressures. Bones/joints: No acute fracture. Soft tissues: Partially imaged bilateral renal cysts, stable, no further workup. Lymph nodes: No enlarged lymph nodes. IMPRESSION: 1. No pulmonary embolism, as imaged, with limited evaluation due to motion artifact. 2. Mild vascular and bibasilar interstitial prominence, nonspecific, can not rule out mild CHF and/or pneumonia. Electronically signed by: Lily Pinto M.D. 08/26/25 22:[address] 08/26/25 20:27 Exam(s): CT HEAD Without Contrast EXAM: CT Head Without Intravenous Contrast CLINICAL HISTORY: Reason for exam: weak, hypoxic. TECHNIQUE: Axial computed tomography images of the head/brain without intravenous contrast. CTDI is 37.01 mGy and DLP is 702.46 mGy-cm. Automated exposure control was utilized for the study. A dose lowering technique was utilized adhering to the principles of ALARA. Mild to moderate motion artifact. COMPARISON: Head CT 08/12/2025. FINDINGS: Brain: Ventriculomegaly with relatively small sulci, nonspecific, stable, may reflect atrophy of the central component, cannot rule out communicating hydrocephalus. No mass, edema, mass effect or acute infarct. No acute hemorrhage. Mild atrophy and chronic, nonspecific white matter disease. Ventricles: No midline shift. Bones/joints: No skull fracture. Soft tissues: No scalp hematoma. Visualized Sinuses: Clear. Mastoid air cells: No mastoid effusion. IMPRESSION: 1. Stable ventriculomegaly, cannot rule out communicating hydrocephalus. 2. No acute infarct, bleed, acute intracranial abnormality, or interval change. Electronically signed by: Lily Pinto M.D. 08/26/25 22:25 PM Medications Administered Cefepime 2 g IV ECG Additional Comments: Sinus tachycardia 110 bpm, [place] 172, QRS 74, QT/QTc 354/479, PRT */-14/-18 Code Status & VTE Plan Code Status Full UNABLE TO CONFIRM AT TIME OF ADMISSION, PLEASE CONFIRM DURING DAY SHIFT. Supervising Physician Co-Signing Physician Notes Attending addendum: I have physically seen this patient, have supervised the GIUSEPPE's activities, and agree with the H&P unless as otherwise noted. Assessment and Plan: The patient is an 85-year-old male with a past medical history including hyperlipidemia, diabetes mellitus, complicated migraines, depression, dementia, tobacco abuse history, hearing loss, GERD, and left vertebral artery stenosis. He presents to the emergency department complaining of shortness of breath as reported by nursing staff at [facility], with O2 sat 80% on room air. Urinary tract infection- Urinalysis appears abnormal CBC with WBC of 16.53 Follow urine culture and sensitivity CT abdomen and pelvis suggestive of possible cystitis Zofran 4 mg IV every 6 hours as needed Acetaminophen 1 g IV every 8 hours as needed for mild pain or fever Continue cefepime 2 g IV every 24 hours, begun in the ED Acute L3 compression fracture- Patient without symptoms at this time K-pad as needed Fall precautions Acetaminophen as noted above Lidoderm patches become symptomatic Consult PT/OT Shortness of breath/hypoxia- As reported by staff at [facility] Chest x-ray, and CTA chest with no significant findings More likely secondary to fatigue and pain from above 2 diagnoses Continues on cannula oxygen to keep pulse ox 92% - 94% Any potential infection will be covered by cefepime as above Incentive spirometry Dementia/psychiatric- Continue quetiapine, rivastigmine, medroxyprogesterone Remaining orders and notations as noted PG Care Time/CCT Total # of Minutes Spent Total Time Spent with Patient: Total time spent is greater than 50% in coordination of care (as documented) at patient's floor/unit and/or counseling patient: Coding Level of Care Code 15616 INT INP/OBS CARE 3/75MIN Diagnoses Acute UTI N39.0 Compression fracture of L3 vertebra S32.030A Constipation K59.00
[2025-08-27] MEDS ORDERED: POLYETHYLENE (MIRALAX) 17 GM PACK PO PRN (03:18)
[2025-08-27] MEDS ORDERED: ONDANSETRON INJ 2 MG/ML 2 ML VIAL IV PRN (03:18)
[2025-08-27] MEDS ORDERED: ACETAMINOPHEN 500 MG TAB PO PRN (03:18)
[2025-08-27 07:23] LABS: Hematocrit (blood only) 36.1 % (42.0-52.0); Hemoglobin 11.9 g/dl (14.0-18.0); Mean Corpuscular Hemoglobin 27.6 pg (25.0-34.0); Mean Corpuscular Volume 83.8 fL (80.0-100.0); Platelet Count 209 K/uL (130-400); RDW Standard Deviation 44.0 fL (36.4-46.3); Red Blood Count 4.31 M/uL (4.70-6.10); White Blood Count 16.10 K/ul (4.8-10.8)
[2025-08-27] MEDS: POLYETHYLENE (MIRALAX) 17 GM PACK PO SCH (10:04)
[2025-08-27] MEDS: MINERAL OIL ENEMA 133 ML BTL PR ONE (10:05)
[2025-08-27] MEDS: CEFEPIME 2000MG 2,000 MG/20 ML SYR IV SCH (10:06)
--- NOTE | 2025-08-27 10:58 | Hospitalist Progress Note ---
Date of Service August 27, 2025 Assessment & Plan (1) Acute UTI: (2) Compression fracture of L3 vertebra: (3) Constipation: Plan 85-year-old male PMHx HLD, DM, complicated migraines, depression, dementia, history of tobacco abuse, hearing loss, GERD, and prior left vertebral artery stenosis presenting for complaints of SOB per nursing staff at [facility] with O2 sats 80s on the day of arrival. #UTI CTAP: possible cystitis, mild fecal impaction. L3 compression fx Head CT negative Lactate 1.6 procal WNL CBC w/ downtrending leukocytosis to 16.10 UA + for infx, UC prelim + for E. Coli switch from IV Cefepime to IV Rocephin starting 08/28. Tylenol prn for fever/pain. Zofran prn for N/V #L3 compression fracture Unclear if fall or trauma. - [facility] Vit D level low normal at 55.2. - continue outpatient supplementation PT/OT --> recommending rehab, to discuss w/ CM 08/28 #Constipation Unable to express concerns/pain, unable to obtain date of last BM; is prescribed loperamide as needed for loose stool. Also prescribed MiraLAX as needed. s/p mineral oil enema x 1 w/ lg BM Continue Miralax and Dulcolax scheduled. Will require bowel regimen on discharge to prevent fecal impaction in future. #LVA stenosis- Rosuvastatin, Plavix - continue #Dementia/Psych- Quetiapine, rivastigmine, medroxyprogesterone - continue Dispo: Admit, med/tele VTE Prophylaxis: SCDs Admission and Anticipated Discharge Date Admission Date: August 26, 2025 Supervising Physician Co-Signing Physician Notes The patient was not seen by me. The chart was reviewed. Case discussed with MIMI Mosley. Agree with assessment and plan Subjective Meet was seen & examined this morning w/ nursing at bedside. He reported feeling great today and denied any complaints. He was pleasantly confused and thought he was in a grocery store. Physical Exam 2 Physical Exam: General: NAD, VS: BP 128/72; P99; R20; T36.4C Resp: normal respiratory effort, lungs clear to auscultation CV: RRR, no murmur Abd: hypoactive bowel sounds, non tender Extremities: no edema Neuro: Alert, oriented to self only Skin: intact, no lesions noted Results & Data Results & Data Vital Signs (Past 12 Hours) Vital Signs Temp Pulse Pulse Pulse Resp BP BP 08/27/25 07:43 36.4 C L 78 18 136/78 08/27/25 04:11 08/27/25 04:02 37.1 C 83 20 121/82 08/27/25 02:10 79 17 115/83 08/27/25 00:31 81 08/27/25 00:00 72 17 131/70 Pulse Ox O2 Del Method O2 Flow Rate 08/27/25 07:43 94 Room Air 08/27/25 04:11 Nasal Cannula 2 08/27/25 04:02 95 Nasal Cannula 2 08/27/25 02:10 96 Nasal Cannula 2 08/27/25 00:31 08/27/25 00:00 95 Nasal Cannula 2 PG Care Time/CCT Total # of Minutes Spent Total Time Spent with Patient: Total time spent is greater than 50% in coordination of care (as documented) at patient's floor/unit and/or counseling patient: Coding Level of Care Code 54350 SUB INP/OBS CARE 2/35MIN Diagnoses Acute UTI N39.0 Compression fracture of L3 vertebra S32.030A Constipation K59.00
[2025-08-27] MEDS ORDERED: PHA DELIRIUM CONSULT PRN (11:22)
[2025-08-27] MEDS: CLOPIDOGREL BISULFATE 75 MG TAB PO SCH (20:15)
[2025-08-27] MEDS: ROSUVASTATIN CALCIUM 20 MG TAB PO SCH (20:15)
[2025-08-27] MEDS: CHOLECALCIFEROL 25 MCG (1000 UNITS) TAB PO SCH (20:16)
[2025-08-28 07:36] VITALS: BP 160/81; RESP 18; TEMP 97.9; O2SAT 93
[2025-08-28 07:59] LABS: Hematocrit (blood only) 34.9 % (42.0-52.0); Hemoglobin 12.1 g/dl (14.0-18.0); Immature Granulocytes # (auto) 0.05 K/uL (0.01-0.20); Immature Granulocytes % (auto) 0.4 %; Mean Corpuscular Hemoglobin 28.9 pg (25.0-34.0); Mean Corpuscular Volume 83.5 fL (80.0-100.0); Platelet Count 221 K/uL (130-400); RDW Standard Deviation 43.1 fL (36.4-46.3); Red Blood Count 4.18 M/uL (4.70-6.10); White Blood Count 12.69 K/ul (4.8-10.8)
[2025-08-28 08:14] LABS: Anion Gap 6.0 (3-11); Blood Urea Nitrogen 15.0 mg/dl (6-23); Calcium 8.9 mg/dl (8.6-10.3); Carbon Dioxide 24.0 mmol/L (21-32); Chloride 107.0 mmol/L (98-107); Creatinine Clr Calc Pharmacy 73.2 ml/min; Glucose 113.0 mg/dl (70-99(Fasting)); Potassium 3.7 mmol/L (3.5-5.1); Sodium 137.0 mmol/L (136-145)
[2025-08-28] MEDS ORDERED: cefTRIAXone SODIUM 2,000 MG/50 ML BAG IV SCH (09:30)
--- NOTE | 2025-08-28 12:07 | Discharge Summary ---
Discharge Summary Date of Service August 28, 2025 Principal Dx & Hospital Course #1 = Principal Diagnosis (1) Acute UTI: (2) Compression fracture of L3 vertebra: (3) Constipation: Plan 85-year-old male PMHx HLD, DM, complicated migraines, depression, dementia, history of tobacco abuse, hearing loss, GERD, and prior left vertebral artery stenosis presenting for complaints of SOB per nursing staff at [facility] with O2 sats 80s on the day of arrival. #UTI CTAP: possible cystitis, mild fecal impaction. L3 compression fx Head CT negative Lactate 1.6 procal WNL CBC w/ downtrending leukocytosis to 12.69 UA + for infx, UC + for pansensitive E. Coli pt pulled out IV, Keflex started AM of 08/28 & continued on discharge to complete course. #L3 compression fracture Unclear if fall or trauma. - daughter reports several falls recently at [facility] Vit D level low normal at 55.2. - continue outpatient supplementation PT/OT --> recommending rehab however after discussion w/ CM - pt is mostly wheel chair bound @ [facility] therefore he is able to be discharge to [facility] w/ home health PT/OT #Constipation Unable to express concerns/pain, unable to obtain date of last BM; is prescribed loperamide as needed for loose stool. Also prescribed MiraLAX as needed. s/p mineral oil enema x 1 w/ lg BM Continue Miralax daily & Colace BID on discharge. Discontinue loperamide. #LVA stenosis- Rosuvastatin, Plavix - continue #Dementia/Psych- Quetiapine, rivastigmine, medroxyprogesterone - continue Updated daughter 08/27. Discussed w/ CM 08/28. Pt discharged back to [facility] 08/28. Admission HPI Per Admitting Provider 85-year-old male PMHx HLD, DM, complicated migraines, depression, dementia, history of tobacco abuse, hearing loss, GERD, and prior left vertebral artery stenosis presenting for complaints of SOB per nursing staff at [facility] with O2 sats 80s on the day of arrival. Pt is unable to provide a historian, poor historian. Sleeping upon entering the room. He is oriented to his name and opens his eyes when his name is called/when touched on the arm. Shakes his head no when asked if he has pain or if he fell recently. Goes back to sleep then. Report states that the patient was cyanotic at [facility] and had O2 sats of 80% when checked. Since being in ED, he has not been hypoxic at all. ED evaluation CBC with leukocytosis 16.59, H&H 12.3/35.9; PT/INR WNL; VBG's pCO2 33; CMP sodium 135, glucose 201, BUN/creatinine ratio 20.6; lactate 1.6; troponin 8.8; total CK1 97; procalcitonin 0.1; TSH 2.821; UA positive for infection; BioFire negative; CXR mild vascular/interstitial prominence that is nonspecific and may be chronic; CTAP no acute L3 compression fracture, possible cystitis, fecal impaction in the rectum; head CT stable ventriculomegaly cannot rule out communicating hydrocephalus, no acute infarct/bleed/intracranial abnormality; chest CTA no PE, mild vascular and bibasilar interstitial prominence; EKG sinus tachycardia at 110 bpm.; Provided with cefepime 2 g IV in ED. Please see Dr. Frye's attestation for adjustments/additions to treatment plan. Discharge Exam General: NAD, VS: BP 160/81; P75; T36.6C; R18 Resp: normal respiratory effort, lungs clear to auscultation CV: RRR Abd: normal bowel sounds, non tender Extremities: Moves all extremities, no edema Neuro: Alert, oriented to self only Skin: intact, no lesions noted Discharge Plan Discharge Items Patient Disposition: Personal [facility]pc Reason For Visit: UTI, L3 COMP FX, CONSTIPATION Discharge Diagnosis: UTI, constipation, L3 compression fracture Condition on Discharge: Fair Activity: Resume your previous activity Non-emergency contact: Primary Care Provider Call non-emergency contact if: you have any medication questions, your symptoms worsen, your pain is not controlled and you have a fever Follow-up/Referrals: ZELALEM Martinez [Non-Staff] - Diet: Heart Healthy Addtl Attending Provider Instructions: Mr. Carter, You were recently hospitalized for shortness of breath. You were found to have an L3 compression fracture, urinary tract infection, and were severely constipated. Medications: Your medication list has been reviewed and reconciled upon discharge to ensure accuracy and continuity of care. An updated list of all your medications is included with your hospital discharge paperwork. Please review this list closely, and make note of any changes. Cephalexin 500mg has been sent in to the pharmacy. Please take this 3 times daily with next dose being this evening. A daily bowel regimen is important to help prevent stool impactions in the future. Please take 1 capful of Miralax daily along with Colace 100mg twice daily to help facilitate bowel movements. Take your medications as instructed; do not skip a dose of your medicines. Make sure all of your doctors know every medicine you are taking (including elby-kmg-qadbnwe medicines, vitamins, and supplements). Call your primary care provider before taking any new medicines (including over- the-counter medicines, vitamins, and supplements), because some of these may interact with your current medications, or may make your symptoms worse. Tell your primary care provider if you cannot afford your medications. Activity: You can do normal everyday activities as your body allows. Take rest breaks if you feel tired. Do not overexert. Stop activity if you have pain, shortness of breath or feel dizzy. PT/OT will continue at your personal snf for you to get stronger. Follow-up appointments: Make an appointment with your primary care physician within one week of discharge. A copy of this summary will be sent to them. Every time you see your primary care physician, or any other doctor, bring your medication list, and a list of questions. CONTACT YOUR PRIMARY CARE PROVIDER if you experience any of the following: Shortness of breath or difficulty breathing Fevers or chills Feeling tired with normal activity or experiencing dizziness or fainting Difficulty following your treatment plan, or difficulty taking medications CALL 911 OR GO TO THE EMERGENCY DEPARTMENT if you experience any of the following: Severe abdominal pain or nausea/vomiting Severe chest pain, or chest pain that radiates (moves) to your jaw or arm Sudden, severe shortness of breath or difficulty breathing Thank you for allowing us to participate in your care. Pending Studies at Discharge: Yes Studies:: final results of urine culture Stand-Alone Forms: [employer], Smoking Cessation Skilled Items Patient informed of condition?: Yes DNR: No Discharge Level of Care: Other Communicable Disease: No Discharge Prognosis: Improving Lines: None Urinary Catheter: No Medications and DC Order Prescriptions: New polyethylene glycol 3350 [Miralax] 17 gram Powder In Packet 17 g PO QAM Qty: 30 0RF cephalexin 500 mg Capsule 500 mg PO TID Qty: 15 0RF docusate sodium [Colace] 100 mg capsule 100 mg PO BID Qty: 60 0RF Continued clopidogrel 75 mg tablet 75 mg PO QPM acetaminophen 500 mg Tablet 500 mg PO Q6H MDD 3GM PRN (Reason: Pain/ Fever ) rosuvastatin 40 mg tablet 40 mg PO QPM medroxyprogesterone 10 mg tablet 10 mg PO BID cholecalciferol (vitamin D3) [Vitamin D3] 25 mcg (1,000 unit) Tablet 50 mcg PO TID rivastigmine 4.6 mg/24 hour patch 24 hour 1 patch topical QPM quetiapine 25 mg tablet 25 mg PO BID Discontinued polyethylene glycol 3350 [Miralax] 17 gram Powder In Packet 17 g PO QAM PRN (Reason: Constipation) loperamide 2 mg capsule 4 mg PO DAILY MDD 4 caps PRN (Reason: Loose Stool ) Rx Instructions: Take 2 capsules by mouth after 1st loose bowel movement, then one capsule thereafter as needed. *Max 4caps/ 24hours. Discharge Orders: Discharge Order (Routine); Ordered 08/28/25 Ordered By: Hillary Brown Admission Data Admit Date/Time: 08/26/25 23:00 Attending Provider: Cristian Fried Admit Provider: Camilo Frye Primary Care Provider: Malissa Mast Other Providers: [facility]; Camilo Frye Other Interventions: Discharge Summary Assessment (RN) Last Done: 08/28/25 12:23 Hospital Stay Data Consultations 08/26/25 22:20 ED Decision to Admit Stat Diagnostic Imagining Performed 08/26/25 20:27 CT abd pelvis IV con only Stat CT angio chest PE protocol Stat CT head/brain wo con Stat Pending Results Patient Have Any Pending Studies at Discharge: Yes Discharge Instructions Given to Patient (Per Discharging Provider) Mr. Carter, You were recently hospitalized for shortness of breath. You were found to have an L3 compression fracture, urinary tract infection, and were severely constipated. Medications: Your medication list has been reviewed and reconciled upon discharge to ensure accuracy and continuity of care. An updated list of all your medications is included with your hospital discharge paperwork. Please review this list closely, and make note of any changes. Cephalexin 500mg has been sent in to the pharmacy. Please take this 3 times daily with next dose being this evening. A daily bowel regimen is important to help prevent stool impactions in the future. Please take 1 capful of Miralax daily along with Colace 100mg twice daily to help facilitate bowel movements. Take your medications as instructed; do not skip a dose of your medicines. Make sure all of your doctors know every medicine you are taking (including lqro-aqg-uznusir medicines, vitamins, and supplements). Call your primary care provider before taking any new medicines (including over- the-counter medicines, vitamins, and supplements), because some of these may interact with your current medications, or may make your symptoms worse. Tell your primary care provider if you cannot afford your medications. Activity: You can do normal everyday activities as your body allows. Take rest breaks if you feel tired. Do not overexert. Stop activity if you have pain, shortness of breath or feel dizzy. PT/OT will continue at your personal snf for you to get stronger. Follow-up appointments: Make an appointment with your primary care physician within one week of discharge. A copy of this summary will be sent to them. Every time you see your primary care physician, or any other doctor, bring your medication list, and a list of questions. CONTACT YOUR PRIMARY CARE PROVIDER if you experience any of the following: Shortness of breath or difficulty breathing Fevers or chills Feeling tired with normal activity or experiencing dizziness or fainting Difficulty following your treatment plan, or difficulty taking medications CALL 911 OR GO TO THE EMERGENCY DEPARTMENT if you experience any of the following: Severe abdominal pain or nausea/vomiting Severe chest pain, or chest pain that radiates (moves) to your jaw or arm Sudden, severe shortness of breath or difficulty breathing Thank you for allowing us to participate in your care. Supervising Physician Co-Signing Physician Notes The patient was not seen by me. The chart was reviewed. Case discussed with MIMI Mosley. Agree with assessment and plan Total Time Total Time Spent Total Time Spent (In Minutes): 55 Total Time Includes: Examination of the Patient, Discharge Planning, Medication Reconciliation and Communication With Other Providers Coding Level of Care Code 48838 INP/OBS DISCH >30 MIN Diagnoses Acute UTI N39.0 Compression fracture of L3 vertebra S32.030A Constipation K59.00
[2025-08-28 12:24] VITALS: PULSE 72
--- NOTE | 2025-08-29 12:53 | Coding Query ---
CODING QUERY To promote full compliance with coding requirements relating to patient care, provider participation is requested in all cases of plant guard uncertainty. Please assist us with the question(s) below: Coding Question(s): Please specify below, in your clinical opinion, regarding L3 Compression Fracture: ( ) most likely due to fall/trauma ( ) most likely nontraumatic not otherwise specified ( ) most likely pathological Physician's Response(s): MIMI Mosley patient Thank you Alida Argueta Principal Diagnosis: "that condition established after study, to be chiefly responsible for occasioning the admission of the patient to the hospital for care." Co-Existing Principal Diagnosis: "when two or more diagnoses equally meet the criteria for principal diagnosis as determined by the circumstances of admission, diagnostic work up, and/or therapy provided, and the Alphabetic Index, Tabular List, or another coding guideline does not provide sequencing direction, any one of the diagnoses may be sequenced first." "When the physician has documented what appears to be a current diagnosis in the body of the record, but has not included the diagnosis in the final diagnostic statement, the physician should be asked whether the diagnosis should be added." ([facility] 2 QTR90. p3-4) SHAYNA
--- NOTE | 2025-08-29 13:42 | Coding Query ---
CODING QUERY To promote full compliance with coding requirements relating to patient care, provider participation is requested in all cases of certified medical records coder uncertainty. Please assist us with the question(s) below: Coding Question(s): Please specify below, in your clinical opinion, regarding L3 Compression Fracture: ( x ) most likely due to fall/trauma ( ) most likely nontraumatic not otherwise specified ( ) most likely pathological Physician's Response(s): most likely due to fall/trauma. Thank you Aldia Argueta Principal Diagnosis: "that condition established after study, to be chiefly responsible for occasioning the admission of the patient to the hospital for care." Co-Existing Principal Diagnosis: "when two or more diagnoses equally meet the criteria for principal diagnosis as determined by the circumstances of admission, diagnostic work up, and/or therapy provided, and the Alphabetic Index, Tabular List, or another coding guideline does not provide sequencing direction, any one of the diagnoses may be sequenced first." "When the physician has documented what appears to be a current diagnosis in the body of the record, but has not included the diagnosis in the final diagnostic statement, the physician should be asked whether the diagnosis should be added." ([facility] 2 QTR90. p3-4) SHAYNA
--- NOTE | 2025-09-01 06:20 | Electrocardiogram Report ---
Test Reason : Blood Pressure : */* mmHG Vent. Rate : 110 BPM Atrial Rate : 110 BPM P-R Int : 172 ms QRS Dur : 74 ms QT Int : 354 ms P-R-T Axes : * -14 -18 degrees QTcB Int : 479 ms Sinus tachycardia Otherwise normal ECG When compared with ECG of 12-Aug-2025 07:41, Premature atrial complexes are no longer Present Vent. rate has increased by 52 bpm Questionable change in QRS axis T wave inversion now evident in Inferior leads Confirmed by Daljit Caraballo ([id number]) on 09/01/2025 6:20:19 AM Referred By: CELEBRATION MARJAN Confirmed By: Daljit Caraballo
== END 2025-08-28 13:44 | disposition home or self-care (01) | DRG 690 ==
LOC: ED 20:18 → SUATTDRO 23:00 → 2W 23:00

== ENCOUNTER 2025-09-21 20:14 | Inpatient (IN) ==
--- NOTE | 2025-09-21 20:57 | Emergency Department Note ---
Impression & Plan Complicated urinary tract infection, Acute encephalopathy ED Provider Note NAME: KALI ORTEGA Sr AGE: 85 SEX: M : 1940 ARRIVES VIA: Ambulance INFORMANT: Patient, EMS ED PROVIDER(S): Alexander Bloom DO CHIEF COMPLAINT: AMS HPI: This is an 85-year-old male with the PMHx of severe dementia, recurrent UTIs, seizure-like activity and hypertension, hyperlipidemia presenting to [facility] for further evaluation of altered mental status. Patient is accompanied by EMS who provide additional history. The patient currently resides at [facility]. EMS states the patient was called for altered mental status as well as drifting to the left. There was also concerns for hypoxia. EMS states the patient has been hemodynamically stable. Patient is demented at baseline and unable to provide significant history or review of systems. There is concerns for possible UTI.. They deny fever or chills. No cough or congestion. Denies chest pain or palpitations. No shortness of breath. They deny abdominal pain, nausea and vomiting. No urinary complaints. No recent changes in bowel movements. Patient denies recent changes in medications or OTC supplements. Patient offers no other complaints, today. ADDITIONAL HISTORY OBTAINED: Per HPI Chronic Medical/Social Conditions Affecting Care: Per HPI PAST MEDICAL HISTORY: See Below PAST SURGICAL HISTORY: See Below FAMILY HISTORY: See Below SOCIAL HISTORY: See Below HOME MEDICATIONS: See Below ALLERGIES: See Below VITALS: See Below PHYSICAL EXAMINATION: GENERAL: Alert, well developed, well nourished, no acute distress HEAD: Normocephalic, atraumatic EYES: EOM's intact, sclera anicteric, conjunctiva clear OROPHARYNX: Airway patent and mucous membranes moist LUNGS: No respiratory distress, normal respiratory rate and effort HEART: Well perfused, regular rate ABDOMEN: Abdomen non-distended SKIN: Normal color, dry EXTREMITIES: No gross deformities, no edema NEURO: Alert, oriented x1, he is confused and drowsy, appropriate for age, moves all four extremities, normal speech MEDICAL DECISION MAKING: Differential diagnoses includes but not limited to UTI, electrolyte derangements, dehydration, metabolic encephalopathy, intracranial hemorrhage, stroke, functional decline in the setting of neurocognitive disorder In summary, this is an 85 year old male who presented with AMS. Differential as above. Nursing notes and pertinent past medical records reviewed. Vital signs reviewed and the patient is afebrile and hemodynamically stable. History and presentation revealed patient has a history of severe dementia so it is unclear what his normal baseline is. It is reported from his group home that he is severely altered from usual. Physical examination revealed no significant focal deficits to suggest acute stroke. As a result of my initial evaluation, IV access was established and the patient was placed on CCRM. Therapeutics ordered include IVFR. Plan for CT of the head. Nonfocal exam. Will send urinalysis as well as basic lab work. Patient has no respiratory distress and he has normal oxygenation on room air here in the emergency department. Diagnostics interpreted by me include EKG and cardiac monitoring as listed below: -Cardiac Monitoring: An order was placed for continuous cardiac monitoring. The monitor shows a rate of 80-90s with regular rhythm. -ECG: EKG independently interpreted by me reveals normal sinus rhythm with sinus arrhythmia at a ventricular rate of [address] segment changes to suggest STEMI. Intervals are within normal limits. Patient completed laboratory studies and imaging. Results independently interpreted by me are no leukocytosis or anemia. There is no significant electrolyte derangements or significant kidney dysfunction from baseline. No changes in LFTs. Urinalysis appears infected. Do believe the patient has complicated UTI is likely relating to his acute encephalopathy at this time. Patient placed on IV ceftriaxone. CTH independently interpreted by me reveals no evidence of ICH. No significant hydrocephalus. No major skull fractures. CTH does not demonstrate findings to suggest an etiology of the patient's symptoms or presentation, today. CXR independently interpreted by me reveals no evidence of focal consolidation to suggest pna. No large pneumothorax or pleural effusion. No obvious displaced rib fracture. Given his acute encephalopathy, I do feel the patient would benefit from admission for close telemetry monitoring in the setting of his complicated UTI. Ultimately, the decision was made to admit the patient for complicated UTI complicated further by acute encephalopathy. I discussed the case with the hospitalist service via telephone/TigerText and they are agreeable to admit the patient to their services. Based on the above, including the patient's age, coexisting illnesses, labs, imaging, and exam findings the decision to treat as an inpatient. I discussed the patient with the hospitalist team who recommended admission to their services. They received the medications, treatments, interventions indicated above and their condition remained guarded. I discussed my findings with the patient and their family and they understand and agree with the treatment plan. All patient / family questions were answered to their satisfaction. Consults/Care Managements Discussions: Per MDM ER treatment provided: See above Procedures:none Critical Care: None The chart was completed utilizing [employer] voice recognition software. Grammatical errors, random word insertions, pronoun errors, and incomplete sentences are an occasional consequence of this system due to software limitations, ambient noise, and hardware issues. Any formal questions or concerns about the content, text, or information contained within the body of this dictation should be directly addressed to the physician for clarification. Past Med/Surg History Problem List (Updated 09/22/25 @ 04:09 by Alexander Bloom DO) Acute encephalopathy (Acute) Complicated urinary tract infection (Acute) Dementia Acute encephalopathy due to infection Constipation Compression fracture of L3 vertebra Weakness (Acute) Acute UTI (Acute) Seizure-like activity COVID-19 (Acute) Generalized headaches Stenosis of left vertebral artery Hypertensive urgency Medical History No pertinent family history Diabetes HTN (hypertension) HLD (hyperlipidemia) Migraine Surgical History No pertinent past surgical history Social History Smoking Status: Former smoker Tobacco Type: Cigarettes Hx Alcohol Use: No Hx Substance Use: No Preferred Language: Guinean Communication Ability: Effective Research Statistician Required: No Beliefs That Will Affect Care: None Current Living Situation: Group Home Current Living Situation Comment: [facility] Feels Safe at Home: Yes Assistive Devices: Walker and Wheelchair Allergies Allergies Allergy/AdvReac Type Severity Reaction Status Date / Time Penicillins Allergy Intermediate rash Verified 08/26/25 20:57 HARVEY Inhibitors Allergy Unknown ON Verified 08/26/25 20:57 [facility] MED LIST Home Meds Home Medications Medication Instructions Recorded Confirmed clopidogrel 75 mg tablet 75 mg PO QPM 09/13/20 09/21/25 acetaminophen 500 mg tablet 500 mg PO Q6H PRN Pain/ Fever 01/07/25 09/21/25 rosuvastatin 40 mg tablet 40 mg PO QPM 01/07/25 09/21/25 cholecalciferol (vitamin D3) 25 50 mcg PO TID 06/25/25 09/21/25 mcg (1,000 unit) tablet (Vitamin D3) rivastigmine 4.6 mg/24 hour 1 patch topical QPM 06/25/25 09/21/25 transdermal patch quetiapine 25 mg tablet 25 mg PO BID 08/26/25 09/21/25 levetiracetam 500 mg tablet 500 mg PO BID 09/21/25 09/21/25 loperamide 2 mg capsule 4 mg PO DIRECTED 09/21/25 09/21/25 Previous Rx's Medication Instructions Recorded docusate sodium 100 mg capsule 100 mg PO BID #60 caps 08/28/25 (Colace) polyethylene glycol 3350 17 gram 17 g PO QAM #30 ea 08/28/25 oral powder packet (Miralax) Results & Data (ED) Vital Signs Vital Signs - 24 hr 09/21/25 20:17 09/21/25 20:50 09/21/25 21:08 Temperature 36.8 C Temperature Source Oral Pulse Rate 97 H 89 Respiratory Rate 20 20 Respiratory Effort / Characteristics Non-Labored Spontaneous Respiratory Depth Normal Blood Pressure 123/71 121/72 Blood Pressure Mean 88 78 Pulse Oximetry 94 94 95 Oxygen Delivery Method Room Air Room Air Sepsis Recent Fever Within 48 Hours No Sepsis New/Unexplained Change in Mental Status N/A Sepsis Action Taken by Nursing No Action Required 09/21/25 22:00 09/21/25 22:35 Temperature Temperature Source Pulse Rate 80 82 Respiratory Rate 18 22 Respiratory Effort / Characteristics Respiratory Depth Blood Pressure 136/90 115/81 Blood Pressure Mean 105 92 Pulse Oximetry 95 96 Oxygen Delivery Method Sepsis Recent Fever Within 48 Hours Sepsis New/Unexplained Change in Mental Status Sepsis Action Taken by Nursing Laboratory Data 09/21/25 20:30 09/21/25 20:30 Lab Results 09/21/25 Range/Units 20:30 WBC 9.70 (4.8-10.8) K/ul RBC 4.52 L (4.70-6.10) M/uL Hgb 13.1 L (14.0-18.0) g/dl Hct 38.8 L (42.0-52.0) % MCV 85.8 (80.0-100.0) fL MCH 29.0 (25.0-34.0) pg MCHC 33.8 (32.0-36.0) g/dL RDW Std Deviation 44.8 (36.4-46.3) fL RDW Coeff of Nicole 14.3 (11.5-14.5) % Plt Count 224 (130-400) K/uL MPV 10.5 (9.4-12.4) fL Immature Gran % (Auto) 0.2 % Neut % (Auto) 66.1 % Lymph % (Auto) 19.1 % [place] % (Auto) 10.9 % Eos % (Auto) 3.2 % Baso % (Auto) 0.5 % Neut # (Auto) 6.41 (1.40-6.50) K/uL Lymph # (Auto) 1.85 (1.20-3.40) K/uL [place] # (Auto) 1.06 H (0.11-0.59) K/uL Eos # (Auto) 0.31 (0.00-0.50) K/uL Baso # (Auto) 0.05 (0.00-0.20) K/uL Immature Gran # (Auto) 0.02 (0.01-0.20) K/uL Sodium 142 (136-145) mmol/L Potassium 3.9 (3.5-5.1) mmol/L Chloride 111 H (98-107) mmol/L Carbon Dioxide 24 (21-32) mmol/L Anion Gap 7 (3-11) BUN 21 (6-23) mg/dl Creatinine 1.09 (0.6-1.4) mg/dl Est Cr Clr Drug Dosing 52.2 ml/min eGFR 67.34 BUN/Creatinine Ratio 19.3 (10-20) Glucose 200 H (70-99(Fasting)) mg/dl Calcium 9.3 (8.6-10.3) mg/dl Total Bilirubin 0.5 (0.2-1.0) mg/dl AST 23 (13-39) U/L ALT 29 (7-52) U/L Alkaline Phosphatase 79 (34-104) U/L Troponin I High Sens 10.0 (0-20) pg/ml Total Protein 6.6 (6.0-8.3) gm/dl Albumin 3.6 (3.4-5.0) gm/dl Globulin 3.0 (2.5-4.0) gm/dl Albumin/Globulin Ratio 1.2 (0.9-2) Lipase 9 L (11-82) U/L Procalcitonin 0.02 (0-0.5) ng/ml Urine Color Yellow Urine Appearance Turbid A (Clear) Urine pH 5.5 (4.5-7.5) Ur Specific [place] 1.020 (1.000-1.030) Urine Protein 2+ H (Negative) Urine Glucose (UA) Negative (Negative) Urine Ketones Negative (Negative) Urine Blood 2+ H (Negative) Urine Nitrite Positive A (Negative) Urine Bilirubin Negative (Negative) Urine Urobilinogen Negative (Negative) Ur Leukocyte Esterase 3+ H (Negative) Urine WBC (Auto) >50 H (0-5) /hpf Urine RBC (Auto) 0-2 (0-2) /hpf U Hyaline Cast (Auto) 11-20 H (0-2) /lpf U Epithel Cells (Auto) 0-2 (0-2) /hpf Urine Bacteria (Auto) 4+ H (None Seen) Urine Comment Administered Medications Clopidogrel Bisulfate (Clopidogrel Bisulfate 75 Mg Tab) 75 mg PO QPM JULIANA Stop: 10/21/25 23:47 Last Admin: 09/22/25 00:33 Dose: 75 mg Documented By: psc Parenteral Electrolytes (Plasma-Lyte A Ph 7.4) 1,000 mls @ 80 mls/hr IV .[id number] JULIANA Stop: 09/22/25 11:29 Last Admin: 09/21/25 23:22 Dose: 80 mls/hr Documented By: abl Levetiracetam (Levetiracetam 500 Mg Tab) 500 mg PO BID JULIANA Stop: 10/21/25 23:44 Last Admin: 09/22/25 00:33 Dose: 500 mg Documented By: psc Miscellaneous (Rivastigmine 4.6 Mg/24 Hour Patch - Order Awaiting Action) 1 each N/A QS JULIANA Stop: 10/22/25 00:00 Last Admin: 09/22/25 02:48 Dose: Not Given Documented By: psc Quetiapine Fumarate (Quetiapine Fumarate 25 Mg Tablet) 25 mg PO BID JULIANA Stop: 10/21/25 23:47 Last Admin: 09/22/25 00:33 Dose: 25 mg Documented By: psc Rosuvastatin Calcium (Rosuvastatin Calcium 20 Mg Tab) 40 mg PO QPM JULIANA Stop: 10/21/25 23:47 Last Admin: 09/22/25 00:32 Dose: 20 mg Documented By: psc Discontinued Medications Ceftriaxone Sodium (Rocephin) 1,000 mg in 50 mls @ 100 mls/hr IV NOW STA Stop: 09/21/25 22:10 Last Infusion: 09/21/25 22:19 Dose: Infused Documented By: abl Admin: 09/21/25 21:47 Dose: 100 mls/hr Documented By: abl Parenteral Electrolytes (Plasma-Lyte A Ph 7.4) 500 mls @ 999 mls/hr IV .Q31M ONE Stop: 09/21/25 22:11 Last Infusion: 09/21/25 22:55 Dose: Infused Documented By: abl Admin: 09/21/25 22:19 Dose: 999 mls/hr Documented By: abl Imaging Data Radiologist's Impression: Chest X-Ray 09/21/25 20:41 Exam(s): XR CXR 1 VIEW EXAM: XR Chest, 1 View CLINICAL HISTORY: Reason for exam: hypoxia. TECHNIQUE: Frontal view of the chest. COMPARISON: Chest x-ray from 08/26/[address] from 08/12/2025. FINDINGS: Lungs: Slightly prominent interstitial markings throughout both lungs, similar to previous. No new focal infiltrate or consolidation is identified. Pleural space: Unremarkable. No pneumothorax. Heart: The cardiac silhouette is borderline enlarged, unchanged. Mediastinum: Unremarkable. Normal mediastinal contour. Bones/joints: Mild degenerative changes in the lower thoracic spine. No acute fracture. Upper abdomen: Unremarkable as visualized. No pneumoperitoneum under the diaphragm. IMPRESSION: 1. The cardiac silhouette is borderline enlarged, unchanged. 2. Slightly prominent interstitial markings throughout both lungs, similar to previous. No new focal infiltrate or consolidation is identified. Consider mild emphysema. Electronically signed by: Jose Miguel Gastelum MD 09/21/25 23:[address] 09/21/25 20:41 Exam(s): CT HEAD Without Contrast EXAM: CT Head Without Intravenous Contrast CLINICAL HISTORY: Reason for exam: AMS. TECHNIQUE: Axial computed tomography images of the head/brain without intravenous contrast. CTDI is 36 mGy and DLP is 546 mGy-cm. Automated exposure control was utilized for the study. A dose lowering technique was utilized adhering to the principles of ALARA. COMPARISON: 08/26/2025 FINDINGS: Brain: [id number] atrophy and periventricular white matter low density consistent with chronic small vessel disease and/or senescent changes, unchanged. No acute large vessel infarct or intracranial hemorrhage is identified. Ventricles: Mildly dilated. No mass or hemorrhage. Bones/joints: Unremarkable. No acute fracture. Soft tissues: Unremarkable. Sinuses: Unremarkable as visualized. No acute sinusitis. Mastoid air cells: Unremarkable as visualized. No mastoid effusion. IMPRESSION: [place]-sy-ktxebixa atrophy and periventricular white matter low density consistent with chronic small vessel disease and/or senescent changes, unchanged. No acute large vessel infarct or intracranial hemorrhage is identified. Electronically signed by: Jose Miguel Gastelum MD 09/21/25 23:15 PM Discharge Plan Visit Data Chief Complaint: Neuro Symptoms/Deficit Stated Complaint: confusion/ UTI sx, hx dementia and UTI's ED Provider: Alexander Bloom Discharge Problem: Complicated urinary tract infection, Acute encephalopathy Patient Disposition: Admitted As Inpatient Condition: Fair Discharge Instructions Interventions: ED Discharge Assessment Last Done: 09/21/25 23:30
[2025-09-21 21:25] LABS: Alanine Aminotransferase 29.0 U/L (7-52); Albumin Globulin Ratio 1.2 (0.9-2); Albumin Level 3.6 gm/dl (3.4-5.0); Alkaline Phosphatase 79.0 U/L (34-104); Anion Gap 7.0 (3-11); Bilirubin,Total 0.5 mg/dl (0.2-1.0); Blood Urea Nitrogen 21.0 mg/dl (6-23); Calcium 9.3 mg/dl (8.6-10.3); Carbon Dioxide 24.0 mmol/L (21-32); Chloride 111.0 mmol/L (98-107); Creatinine Clr Calc Pharmacy 52.2 ml/min; Globulin 3.0 gm/dl (2.5-4.0); Glucose 200.0 mg/dl (70-99(Fasting)); Lipase 9.0 U/L (11-82); Potassium 3.9 mmol/L (3.5-5.1); Sodium 142.0 mmol/L (136-145); Total Protein 6.6 gm/dl (6.0-8.3)
[2025-09-21 21:26] LABS: Appearance Urine Turbid (Clear); Bacteria Urine Automated 4+ (None Seen); Epithelial Cell Urine Auto 0-2 /hpf (0-2); Glucose Urine UA Negative (Negative); RBC Urine Automated 0-2 /hpf (0-2); WBC Urine Automated >50 /hpf (0-5)
[2025-09-21 21:38] LABS: Hematocrit (blood only) 38.8 % (42.0-52.0); Hemoglobin 13.1 g/dl (14.0-18.0); Immature Granulocytes # (auto) 0.02 K/uL (0.01-0.20); Immature Granulocytes % (auto) 0.2 %; Mean Corpuscular Hemoglobin 29.0 pg (25.0-34.0); Mean Corpuscular Volume 85.8 fL (80.0-100.0); Platelet Count 224 K/uL (130-400); RDW Standard Deviation 44.8 fL (36.4-46.3); Red Blood Count 4.52 M/uL (4.70-6.10); White Blood Count 9.70 K/ul (4.8-10.8)
[2025-09-21] MEDS: cefTRIAXone SODIUM 1,000 MG/50 ML BAG IV STA (21:47)
[2025-09-21] MEDS: PLASMA-LYTE A 500 ML IV ONE (22:19)
--- NOTE | 2025-09-21 22:51 | History & Physical Report ---
Date of Service September 21, 2025 Assessment & Plan (1) Acute encephalopathy due to infection: (2) Acute UTI: (3) Dementia: Plan Patient is a 85-year-old male with past medical history of type II DM, HTN, HLD, dementia, wheelchair bound. Patient presented via EMS from [facility] for confusion and concerned that he was having a stroke. Workup in the ED revealed UTI, otherwise laboratories WNL. Head CT and CXR official read pending at time of admission however personally reviewed and no acute changes. Patient denies any pain, unable to obtain any further ROS given patient frequently sleeping on exam, which is reportedly his baseline as per previous health records. #acute encephalopathy/UTI UA concerning for infection with nitrites, 3+ LE, >50 WBC, 4+ bacteria. Nonseptic presentation - no leukocytosis, VSS. Renal function stable. - suspect confusion 2/2 acute infection - no other acute indications on workup - electrolytes stable, CXR negative, head ct negative for acute changes - defer abdominal imaging given abd nontender and hemodynamically stable on admission - hx pansensitive e coli - continue Rocephin - IVF with plasmalyte @ 80 ml/hr x1L - follow urine cultures - trend cbc and bmp - promote good sleep wake cycles - melatonin prn #dementia - continue Seroquel, rivastigmine patch, and levetiracetam #HLD - continue statin and plavix VTE ppx: SCDs, low risk Dispo: med surg Admission and Anticipated Discharge Date Admission Date: 09/21/25 History of Present Illness Chief Complaint: neuro symptoms Primary Care Provider: [facility] Patient is a 85-year-old male with past medical history of type II DM, HTN, HLD, dementia. Patient presented via EMS from [facility] for confusion and concerned that he was having a stroke. Workup in the ED revealed UTI, otherwise laboratories WNL. Head CT and CXR official read pending at time of admission h owever personally reviewed and no acute changes. He has a history of pansensitive E. coli on urine culture. Patient denies any pain, unable to obtain any further ROS given patient frequently sleeping on exam, which is reportedly his baseline as per previous health records. Unable to verify CODE STATUS as patient unable to answer any questions, no information sent from personal-snf. Patient admitted in the middle of the night so we will make full code as per recent admission orders approximately 1 month ago, verify during daylight hours when family present or able to be reached by phone. Allergies Allergy/AdvReac Type Severity Reaction Status Date / Time Penicillins Allergy Intermediate rash Verified 08/26/25 20:57 HARVEY Inhibitors Allergy Unknown ON Verified 08/26/25 20:57 [facility] MED LIST Home Medications Medication Instructions Recorded Confirmed Type clopidogrel 75 mg tablet 75 mg PO QPM 09/13/20 09/21/25 History acetaminophen 500 mg tablet 500 mg PO Q6H PRN Pain/ Fever 01/07/25 09/21/25 History rosuvastatin 40 mg tablet 40 mg PO QPM 01/07/25 09/21/25 History cholecalciferol (vitamin D3) 25 50 mcg PO TID 06/25/25 09/21/25 History mcg (1,000 unit) tablet (Vitamin D3) rivastigmine 4.6 mg/24 hour 1 patch topical QPM 06/25/25 09/21/25 History transdermal patch quetiapine 25 mg tablet 25 mg PO BID 08/26/25 09/21/25 History docusate sodium 100 mg capsule 100 mg PO BID #60 caps 08/28/25 09/21/25 Rx (Colace) polyethylene glycol 3350 17 gram 17 g PO QAM #30 ea 08/28/25 09/21/25 Rx oral powder packet (Miralax) levetiracetam 500 mg tablet 500 mg PO BID 09/21/25 09/21/25 History loperamide 2 mg capsule 4 mg PO DIRECTED 09/21/25 09/21/25 History Past Med/Surg History Problem List (Updated 09/21/25 @ 23:12 by Parris Abreu PA-C) Dementia Acute encephalopathy due to infection Constipation Compression fracture of L3 vertebra Weakness (Acute) Acute UTI (Acute) Seizure-like activity COVID-19 (Acute) Generalized headaches Stenosis of left vertebral artery Hypertensive urgency Medical History No pertinent family history Diabetes HTN (hypertension) HLD (hyperlipidemia) Migraine Surgical History No pertinent past surgical history Social History Smoking Status: Former smoker Tobacco Type: Cigarettes Hx Alcohol Use: No Hx Substance Use: No Preferred Language: Frisian Communication Ability: Effective Wholesale Loan Processor Required: No Beliefs That Will Affect Care: None Current Living Situation: Longterm Current Living Situation Comment: [facility] Feels Safe at Home: Yes Assistive Devices: Walker and Wheelchair Review of Systems Review of Systems: unable to obtain Physical Exam Physical Exam: The patient is sleeping, responds to verbal stimuli, well developed and well nourished, normocephalic and atraumatic, in no acute distress. Non-toxic appearing. HEENT- EOMI, mucous membranes dry. Hearing grossly intact. Heart-normal S1 and S2. No murmurs, rubs or gallops. Lungs-clear bilaterally, no respiratory distress, no accessory muscle use. Abdomen-normal bowel sounds and soft. No ascites noted. Non-tender. Extremities- no clubbing, cyanosis, or edema. Results & Data Results & Data Vital Signs (Past 12 Hours) Vital Signs Temp Pulse Resp BP Pulse Ox O2 Del Method 09/21/25 22:00 80 18 136/90 95 09/21/25 21:08 89 20 121/72 95 09/21/25 20:50 94 Room Air 09/21/25 20:17 36.8 C 97 H 20 123/71 94 Room Air Laboratory Results Reviewed CBC, CMP, troponin, lipase, procalcitonin, UA Diagnostic Findings head CT and CXR pending at time of admission Medications Administered EDRocephin 1G IV, Plasma-Lyte 500 mL IV bolus ECG Additional Comments: ordered Code Status & VTE Plan Code Status will make full code is unable to verify CODE STATUS and was full code during recent admission less than 1 month ago No paperwork sent from personal-snf No family at bedside and admitted in the middle of the night, will handoff to next provider to assess in the morning VTE Prophylaxis Plan VTE Prophylaxis will be ordered: Yes Supervising Physician Co-Signing Physician Notes Patient seen and examined, chart reviewed, case discussed with NAVI Abreu and I agree with the assessment and plan as above. Patient with acute metabolic encephalopathy due to UTI. Underlying dementia -Ceftriaxone -IVF -Continue Seroquel, Rivastigmine and Keppra PG Care Time/CCT Total # of Minutes Spent Total Time Spent with Patient: Total time spent is greater than 50% in coordination of care (as documented) at patient's floor/unit and/or counseling patient: Coding Level of Care Code 93188 INT INP/OBS CARE 3/75MIN Diagnoses Acute encephalopathy due to infection G93.49; B99.9 Acute UTI N39.0 Dementia F03.90
--- NOTE | 2025-09-21 23:16 | CT Scan Report ---
Exam(s): CT HEAD Without Contrast EXAM: CT Head Without Intravenous Contrast CLINICAL HISTORY: Reason for exam: AMS. TECHNIQUE: Axial computed tomography images of the head/brain without intravenous contrast. CTDI is 36 mGy and DLP is 546 mGy-cm. Automated exposure control was utilized for the study. A dose lowering technique was utilized adhering to the principles of ALARA. COMPARISON: 08/26/2025 FINDINGS: Brain: Thvg-zq-gqbdeuqr atrophy and periventricular white matter low density consistent with chronic small vessel disease and/or senescent changes, unchanged. No acute large vessel infarct or intracranial hemorrhage is identified. Ventricles: Mildly dilated. No mass or hemorrhage. Bones/joints: Unremarkable. No acute fracture. Soft tissues: Unremarkable. Sinuses: Unremarkable as visualized. No acute sinusitis. Mastoid air cells: Unremarkable as visualized. No mastoid effusion. IMPRESSION: Qobg-zp-xwuzlazp atrophy and periventricular white matter low density consistent with chronic small vessel disease and/or senescent changes, unchanged. No acute large vessel infarct or intracranial hemorrhage is identified. Electronically signed by: Jose Miguel Gastelum MD 09/21/25 23:15 PM
--- NOTE | 2025-09-21 23:17 | XRay Report ---
Exam(s): XR CXR 1 VIEW EXAM: XR Chest, 1 View CLINICAL HISTORY: Reason for exam: hypoxia. TECHNIQUE: Frontal view of the chest. COMPARISON: Chest x-ray from 08/26/[address] from 08/12/2025. FINDINGS: Lungs: Slightly prominent interstitial markings throughout both lungs, similar to previous. No new focal infiltrate or consolidation is identified. Pleural space: Unremarkable. No pneumothorax. Heart: The cardiac silhouette is borderline enlarged, unchanged. Mediastinum: Unremarkable. Normal mediastinal contour. Bones/joints: Mild degenerative changes in the lower thoracic spine. No acute fracture. Upper abdomen: Unremarkable as visualized. No pneumoperitoneum under the diaphragm. IMPRESSION: 1. The cardiac silhouette is borderline enlarged, unchanged. 2. Slightly prominent interstitial markings throughout both lungs, similar to previous. No new focal infiltrate or consolidation is identified. Consider mild emphysema. Electronically signed by: Jose Miguel Gastelum MD 09/21/25 23:16 PM
[2025-09-21] MEDS: PLASMA-LYTE A 1,000 ML IV SCH (23:22)
[2025-09-21] MEDS ORDERED: POLYETHYLENE (MIRALAX) 17 GM PACK PO PRN (23:48)
[2025-09-21] MEDS ORDERED: ONDANSETRON INJ 2 MG/ML 2 ML VIAL IV PRN (23:48)
[2025-09-21] MEDS ORDERED: ACETAMINOPHEN 325 MG TAB PO PRN (23:48)
[2025-09-22] MEDS: ROSUVASTATIN CALCIUM 20 MG TAB PO SCH (00:32)
[2025-09-22] MEDS: CLOPIDOGREL BISULFATE 75 MG TAB PO SCH (00:33)
[2025-09-22] MEDS: levETIRAcetam 500 MG TAB PO SCH (00:33)
[2025-09-22 07:18] LABS: Hematocrit (blood only) 36.2 % (42.0-52.0); Hemoglobin 12.1 g/dl (14.0-18.0); Immature Granulocytes # (auto) 0.04 K/uL (0.01-0.20); Immature Granulocytes % (auto) 0.4 %; Mean Corpuscular Hemoglobin 28.9 pg (25.0-34.0); Mean Corpuscular Volume 86.6 fL (80.0-100.0); Platelet Count 194 K/uL (130-400); RDW Standard Deviation 45.2 fL (36.4-46.3); Red Blood Count 4.18 M/uL (4.70-6.10); White Blood Count 10.42 K/ul (4.8-10.8)
[2025-09-22 07:34] LABS: Anion Gap 6.0 (3-11); Blood Urea Nitrogen 17.0 mg/dl (6-23); Calcium 9.0 mg/dl (8.6-10.3); Carbon Dioxide 27.0 mmol/L (21-32); Chloride 111.0 mmol/L (98-107); Creatinine Clr Calc Pharmacy 48.7 ml/min; Glucose 109.0 mg/dl (70-99(Fasting)); Potassium 3.9 mmol/L (3.5-5.1); Sodium 144.0 mmol/L (136-145)
[2025-09-22] MEDS: DOCUSATE SODIUM 100 MG CAP PO SCH (07:49)
[2025-09-22] MEDS: cefTRIAXone SODIUM 2,000 MG/50 ML BAG IV SCH (09:45)
--- NOTE | 2025-09-22 12:24 | Hospitalist Progress Note ---
"Date of Service September 22, 2025 Assessment & Plan (1) Acute encephalopathy due to infection: (2) Acute UTI: (3) Dementia: Plan Patient is a 85-year-old male with past medical history of type II DM, HTN, HLD, dementia, wheelchair bound. Patient presented via EMS from [facility] for confusion and concerned that he was having a stroke on 09/21. #acute encephalopathy| UTI Head CT: mild-mod atrophy & periventricular white matter low density consistent w/ chronic small vessel disease and/or senescent changes, unchanged. no acute lg vessel infarct/intracranial hemorrhage is identified. UA + for infection w/ UC prelim revealing E. Coli. CBC w/ no leukocytosis & BMP w / stable renal function Continue IV Rocephin PT/OT consulted, 2 person assist currently. Will have to discuss w/ [place] [facility] if he can return vs short term rehab. #dementia - continue Seroquel, rivastigmine patch, and levetiracetam #L vertebral artery stenosis |HLD - continue statin and plavix VTE ppx: SCDs, low risk Dispo: med surg Admission and Anticipated Discharge Date Admission Date: September 21, 2025 Supervising Physician Co-Signing Physician Notes The patient was not seen by me. The chart was reviewed. Case discussed with MIMI Mosley. Agree with assessment and plan Subjective Meet was seen & examined this morning. He is alert and oriented to self. He is not oriented to time or place. he denied any complaints at time of encounter. Physical Exam Physical Exam: General: NAD, VS: BP 135/80; P82; R16; T36.5 Resp: normal respiratory effort, lungs clear to auscultation CV: RRR, no murmur Abd: normal bowel sounds, non tender Extremities: Moves all extremities, no edema Neuro: Alert, oriented to person only Skin: intact, no lesions noted Results & Data Results & Data Vital Signs (Past 12 Hours) Vital Signs Temp Pulse Resp BP Pulse Ox O2 Del Method 09/22/25 07:51 36.4 C L 81 16 151/72 H 94 Room Air 09/22/25 07:30 Room Air PG Care Time/CCT Total # of Minutes Spent Total Time Spent with Patient: Total time spent is greater than 50% in coordination of care (as documented) at patient's floor/unit and/or counseling patient: Coding Level of Care Code 67954 SUB INP/OBS CARE 2/35MIN Diagnoses Acute encephalopathy due to infection G93.49; B99.9 Acute UTI N39.0 Dementia F03.90"
[2025-09-22] MEDS: MELATONIN 3 MG TAB PO PRN (20:13)
[2025-09-23 07:24] LABS: Hematocrit (blood only) 36.4 % (42.0-52.0); Hemoglobin 12.5 g/dl (14.0-18.0); Mean Corpuscular Hemoglobin 28.9 pg (25.0-34.0); Mean Corpuscular Volume 84.3 fL (80.0-100.0); Platelet Count 184 K/uL (130-400); RDW Standard Deviation 43.4 fL (36.4-46.3); Red Blood Count 4.32 M/uL (4.70-6.10); White Blood Count 7.63 K/ul (4.8-10.8)
[2025-09-23 07:42] LABS: Anion Gap 6.0 (3-11); Blood Urea Nitrogen 19.0 mg/dl (6-23); Calcium 9.3 mg/dl (8.6-10.3); Carbon Dioxide 27.0 mmol/L (21-32); Chloride 107.0 mmol/L (98-107); Creatinine Clr Calc Pharmacy 51.7 ml/min; Glucose 111.0 mg/dl (70-99(Fasting)); Potassium 3.9 mmol/L (3.5-5.1); Sodium 140.0 mmol/L (136-145)
--- NOTE | 2025-09-23 13:47 | Hospitalist Progress Note ---
"Date of Service September 23, 2025 Assessment & Plan (1) Acute encephalopathy due to infection: (2) Acute UTI: (3) Dementia: Plan Patient is a 85-year-old male with past medical history of type II DM, HTN, HLD, dementia, wheelchair bound. Patient presented via EMS from [facility] for confusion and concerned that he was having a stroke on 09/21. #acute encephalopathy| UTI Head CT: mild-mod atrophy & periventricular white matter low density consistent w/ chronic small vessel disease and/or senescent changes, unchanged. no acute lg vessel infarct/intracranial hemorrhage is identified. UA + for infection w/ UC revealing pansensitive E. Coli. CBC w/ no leukocytosis & BMP w / stable renal function Continue IV Rocephin, can transition to PO abx upon discharge. PT/OT consulted, 2 person assist currently. --> [facility] to come in and evaluated the patient, awaiting to hear back from their facility. #dementia - continue Seroquel, rivastigmine patch, and levetiracetam #L vertebral artery stenosis |HLD - continue statin and plavix VTE ppx: SCDs, low risk Dispo: med surg, awaiting safe discharge plan. Updated daughter via phone 09/23. Discussed w/ CM 09/23 Admission and Anticipated Discharge Date Admission Date: September 21, 2025 Supervising Physician Co-Signing Physician Notes The patient was not seen by me. The chart was reviewed. Case discussed with MIMI Mosley. Agree with assessment and plan Subjective Meet was seen & examined this morning. He denied any complaints. He was sitting in his chair. He was alert and oriented to person only. Physical Exam Physical Exam: General: NAD, VS: BP 123/71; P75; R20; T36.8C Resp: normal respiratory effort Extremities: Moves all extremities, no edema Neuro: Alert, oriented to person only. Skin: intact, no lesions noted Results & Data Results & Data Vital Signs (Past 12 Hours) Vital Signs Temp Pulse Resp BP Pulse Ox O2 Del Method 09/23/25 07:52 36.8 C 85 14 137/76 95 Room Air PG Care Time/CCT Total # of Minutes Spent Total Time Spent with Patient: Total time spent is greater than 50% in coordination of care (as documented) at patient's floor/unit and/or counseling patient: Coding Level of Care Code 21289 SUB INP/OBS CARE 235MIN Diagnoses Acute encephalopathy due to infection G93.49; B99.9 Acute UTI N39.0 Dementia F03.90"
[2025-09-23 23:48] VITALS: RESP 16
--- NOTE | 2025-09-24 10:50 | Hospitalist Progress Note ---
"Date of Service September 24, 2025 Assessment & Plan (1) Acute encephalopathy due to infection: (2) Acute UTI: (3) Dementia: Plan Patient is a 85-year-old male with past medical history of type II DM, HTN, HLD, dementia, wheelchair bound. Patient presented via EMS from [facility] for confusion and concerned that he was having a stroke on 09/21. #acute encephalopathy| UTI Head CT: mild-mod atrophy & periventricular white matter low density consistent w/ chronic small vessel disease and/or senescent changes, unchanged. no acute lg vessel infarct/intracranial hemorrhage is identified. UA + for infection w/ UC revealing pansensitive E. Coli. CBC w/ no leukocytosis & BMP w / stable renal function s/p IV Rocephin, pt removed IV on 09/24 --> transition to PO Keflex BID through 09/29. PT/OT consulted, improved to minimal assistance & recommending transfer back to [facility] on discharge. --> [facility] to come in and evaluated the patient, awaiting to hear back from their facility. #dementia - continue Seroquel, rivastigmine patch, and levetiracetam #L vertebral artery stenosis |HLD - continue statin and Plavix VTE ppx: SCDs, low risk Dispo: med surg, awaiting safe discharge plan. Admission and Anticipated Discharge Date Admission Date: September 21, 2025 Supervising Physician Co-Signing Physician Notes The patient was not seen by me. The chart was reviewed. Case discussed with MIMI Mosley. Agree with assessment and plan Subjective Meet was seen & examined this morning, he was lying in bed. he denied any compl aints. Physical Exam Physical Exam: General: NAD, VS: BP 157/85; P76; R16; T36.7C Resp: normal respiratory effort Extremities: Moves all extremities, no edema Neuro: Alert, oriented to person only. Skin: intact, no lesions noted Results & Data Results & Data Vital Signs (Past 12 Hours) Vital Signs Temp Pulse Resp BP Pulse Ox O2 Del Method 09/24/25 07:26 36.7 C 76 16 157/85 H 94 Room Air 09/23/25 23:25 36.5 C 82 16 145/73 H 94 Room Air PG Care Time/CCT Total # of Minutes Spent Total Time Spent with Patient: Total time spent is greater than 50% in coordination of care (as documented) at patient's floor/unit and/or counseling patient: Coding Level of Care Code 97813 SUB INP/OBS CARE 2/35MIN Diagnoses Acute encephalopathy due to infection G93.49; B99.9 Acute UTI N39.0 Dementia F03.90"
[2025-09-25 08:13] VITALS: BP 137/81; PULSE 76; TEMP 98.2; O2SAT 90
--- NOTE | 2025-09-25 09:54 | Discharge Summary ---
"Discharge Summary Date of Service September 25, 2025 Principal Dx & Hospital Course #1 = Principal Diagnosis (1) Acute encephalopathy due to infection: (2) Acute UTI: (3) Dementia: Plan Patient is a 85-year-old male with past medical history of type II DM, HTN, HLD, dementia, wheelchair bound. Patient presented via EMS from [facility] for confusion and concerned that he was having a stroke on 09/21. #acute encephalopathy| UTI Head CT: mild-mod atrophy & periventricular white matter low density consistent w/ chronic small vessel disease and/or senescent changes, unchanged. no acute lg vessel infarct/intracranial hemorrhage is identified. UA + for infection w/ UC revealing pansensitive E. Coli CBC w/ no leukocytosis & BMP w / stable renal function s/p IV Rocephin, pt removed IV on 09/24 --> transition to PO Keflex BID through 09/29. PT/OT consulted, improved to minimal assistance & recommending transfer back to [facility] on discharge #dementia - continue Seroquel, rivastigmine patch, and levetiracetam #L vertebral artery stenosis |HLD - continue statin and Plavix Patient discharged back to [facility] 09/25. Admission HPI Per Admitting Provider Patient is a 85-year-old male with past medical history of type II DM, HTN, HLD, dementia. Patient presented via EMS from [facility] for confusion and concerned that he was having a stroke. Workup in the ED revealed UTI, otherwise laboratories WNL. Head CT and CXR official read pending at time of admission however personally reviewed and no acute changes. He has a history of pansensitive E. coli on urine culture. Patient denies any pain, unable to obtain any further ROS given patient frequently sleeping on exam, which is reportedly his baseline as per previous health records. Unable to verify CODE STATUS as patient unable to answer any questions, no information sent from personal-snf. Patient admitted in the middle of the night so we will make full code as per recent admission orders approximately 1 month ago, verify during daylight hours when family present or able to be reached by phone. Discharge Exam General: NAD, VS: BP 137/81; P76; R16; T36.8C Resp: normal respiratory effort Extremities: no edema Neuro: Alert, oriented to self only Skin: intact, no lesions noted Discharge Plan Discharge Items Patient Disposition: Personal Usp Reason For Visit: ACUTE ENCEPHALOPATHY,UTI Discharge Diagnosis: UTI Condition on Discharge: Fair Activity: Resume your previous activity Non-emergency contact: Primary Care Provider Call non-emergency contact if: you have any medication questions, your symptoms worsen and you have a fever Follow-up/Referrals: Malissa Mast [Primary Care Provider] - Diet: Carb Consistent or DM2 Diet Texture: Dental soft (bite-sized) Addtl Attending Provider Instructions: Mr. Carter, You were recently hospitalized secondary to changes in your mental status. You were found to have a UTI and you underwent treatment with antibiotics which will be continued on discharge. Medications: Your medication list has been reviewed and reconciled upon discharge to ensure accuracy and continuity of care. An updated list of all your medications is included with your hospital discharge paperwork. Please review this list closely, and make note of any changes. Please take Keflex 500mg twice daily for the next 4 days. Your first dose at home will be this evening, 09/25. You may take with food to avoid GI upset. Take your medications as instructed; do not skip a dose of your medicines. Make sure all of your doctors know every medicine you are taking (including psjg-tnj-ixhbddo medicines, vitamins, and supplements). Call your primary care provider before taking any new medicines (including over- the-counter medicines, vitamins, and supplements), because some of these may interact with your current medications, or may make your symptoms worse. Tell your primary care provider if you cannot afford your medications. Activity: You can do normal everyday activities as your body allows. Take rest breaks if you feel tired. Do not overexert. Stop activity if you have pain, shortness of breath or feel dizzy. Follow-up appointments: Make an appointment with your primary care physician within one week of discharge. A copy of this summary will be sent to them. Every time you see your primary care physician, or any other doctor, bring your medication list, and a list of questions. CONTACT YOUR PRIMARY CARE PROVIDER if you experience any of the following: Shortness of breath or difficulty breathing Fevers or chills Feeling tired with normal activity or experiencing dizziness or fainting Difficulty following your treatment plan, or difficulty taking medications CALL 911 OR GO TO THE EMERGENCY DEPARTMENT if you experience any of the following: Severe abdominal pain or nausea/vomiting Severe chest pain, or chest pain that radiates (moves) to your jaw or arm Sudden, severe shortness of breath or difficulty breathing Thank you for allowing us to participate in your care. Pending Studies at Discharge: No Stand-Alone Forms: My [facility] [place], Smoking Cessation Skilled Items Patient informed of condition?: Yes DNR: No Discharge Level of Care: Acute rehab Communicable Disease: No Discharge Prognosis: Improving Lines: None Urinary Catheter: No Medications and DC Order Prescriptions: New cephalexin 500 mg Capsule 500 mg PO BID Qty: 8 0RF Continued clopidogrel 75 mg tablet 75 mg PO QPM acetaminophen 500 mg Tablet 500 mg PO Q6H MDD 3GM PRN (Reason: Pain/ Fever ) rosuvastatin 40 mg tablet 40 mg PO QPM cholecalciferol (vitamin D3) [Vitamin D3] 25 mcg (1,000 unit) Tablet 50 mcg PO TID rivastigmine 4.6 mg/24 hour patch 24 hour 1 patch topical QPM loperamide 2 mg capsule 4 mg PO DIRECTED Rx Instructions: 2 CAPS AFTER LOOSE STOOL 4CAPS/24HOURS levetiracetam 500 mg Tablet 500 mg PO BID quetiapine 25 mg tablet 25 mg PO BID polyethylene glycol 3350 [Miralax] 17 gram Powder In Packet 17 g PO QAM Qty: 30 0RF docusate sodium [Colace] 100 mg capsule 100 mg PO BID Qty: 60 0RF Discharge Orders: Discharge Order (Routine); Ordered 09/25/25 Ordered By: Hillary Brown Admission Data Admit Date/Time: 09/21/25 22:49 Attending Provider: Cristian Fried Admit Provider: Patricia Gastelum Primary Care Provider: Malissa Mast Other Providers: Patricia Gastelum; [facility] Other Interventions: Discharge Summary Assessment (RN) Last Done: 09/25/25 11:43 Hospital Stay Data Consultations 09/21/25 22:31 ED Decision to Admit Stat Diagnostic Imagining Performed 09/21/25 20:41 CT head/brain wo con Stat Pending Results Patient Have Any Pending Studies at Discharge: No Discharge Instructions Given to Patient (Per Discharging Provider) Mr. Carter, You were recently hospitalized secondary to changes in your mental status. You were found to have a UTI and you underwent treatment with antibiotics which will be continued on discharge. Medications: Your medication list has been reviewed and reconciled upon discharge to ensure accuracy and continuity of care. An updated list of all your medications is included with your hospital discharge paperwork. Please review this list navin sely, and make note of any changes. Please take Keflex 500mg twice daily for the next 4 days. Your first dose at home will be this evening, 09/25. You may take with food to avoid GI upset. Take your medications as instructed; do not skip a dose of your medicines. Make sure all of your doctors know every medicine you are taking (including dind-rwb-jcpnznw medicines, vitamins, and supplements). Call your primary care provider before taking any new medicines (including over- the-counter medicines, vitamins, and supplements), because some of these may interact with your current medications, or may make your symptoms worse. Tell your primary care provider if you cannot afford your medications. Activity: You can do normal everyday activities as your body allows. Take rest breaks if you feel tired. Do not overexert. Stop activity if you have pain, shortness of breath or feel dizzy. Follow-up appointments: Make an appointment with your primary care physician within one week of discharge. A copy of this summary will be sent to them. Every time you see your primary care physician, or any other doctor, bring your medication list, and a list of questions. CONTACT YOUR PRIMARY CARE PROVIDER if you experience any of the following: Shortness of breath or difficulty breathing Fevers or chills Feeling tired with normal activity or experiencing dizziness or fainting Difficulty following your treatment plan, or difficulty taking medications CALL 911 OR GO TO THE EMERGENCY DEPARTMENT if you experience any of the following: Severe abdominal pain or nausea/vomiting Severe chest pain, or chest pain that radiates (moves) to your jaw or arm Sudden, severe shortness of breath or difficulty breathing Thank you for allowing us to participate in your care. Supervising Physician Co-Signing Physician Notes The patient was not seen by me. The chart was reviewed. Case discussed with MIMI Mosley. Agree with assessment and plan Total Time Total Time Spent Total Time Spent (In Minutes): 45 Total Time Includes: Examination of the Patient, Discharge Planning and Medication Reconciliation Coding Level of Care Code 72106 INP/OBS DISCH >30 MIN Diagnoses Acute encephalopathy due to infection G93.49; B99.9 Acute UTI N39.0 Dementia F03.90"
--- NOTE | 2025-09-25 13:41 | Electrocardiogram Report ---
Test Reason : Blood Pressure : */* mmHG Vent. Rate : 95 BPM Atrial Rate : 95 BPM P-R Int : 162 ms QRS Dur : 70 ms QT Int : 374 ms P-R-T Axes : 71 20 39 degrees QTcB Int : 469 ms Normal sinus rhythm with sinus arrhythmia Normal ECG When compared with ECG of 26-Aug-2025 20:26, T wave inversion no longer evident in Inferior leads Confirmed by Daljit Caraballo ([id number]) on 09/25/2025 1:40:55 PM Referred By: Coral Fabian Crawford Confirmed By: Daljit Caraballo
== END 2025-09-25 15:19 | disposition home or self-care (01) | DRG 689 ==
LOC: ED 20:14 → 3W 22:49 → SUATTDRO 22:49 → 3W 23:30